=== PATIENT | female | born 1940 | race Caucasian/White ===

== ENCOUNTER → 2016-10-31 | Outpatient (CLI) | payer MEDICARE ==
[~2016-10-31] MED LIST: ACETAMINOPHEN-H1 TA2 PO; ALTOCOR40 MG PO; AMLODIPINE BESYL5 MG PO; AMLODIPINE5 MG PO; ASPIRIN CHEWABL81 M1 PO; ATENOLOL50 MG PO; CIPRO500 MG PO; FE-40325 MG PO; Heparin SC; K-DUR20 MEQ PO; LASIX40 MG PO; LISINOPRIL10 MG PO; METOPROLOL SUCC50 M2 PO; NEURONTIN300 MG PO; NITRO-BID21 T; PHOS LO667 MG PO; PRAVASTATIN SOD40 MG PO; ROCALTROL0.25 MCG PO; SENSIPAR30 MG PO; TEMAZEPAM15 M1 PO; ZYLOPRIM100 MG PO
[2016-10-31 10:02] LABS: BASO % 0.9 % (0.0-1.0); EOS # 0.2 10*3/uL (0.0-0.4); EOS % 5.2 % (1.0-4.0); HEMATOCRIT 32.6 % (37.0-47.0); LYMPH # 0.5 10*3/uL (1.3-4.4); LYMPH % 16.1 % (27.0-41.0); MEAN CELL VOLUME 91.3 fl (81.0-99.0); MEAN CORPUSCULAR HGB 30.8 pg (27.0-31.0); MEAN CORPUSCULAR HGB CONC 33.7 g/dl (33.0-37.0); MEAN PLATELET VOLUME 9.5 fl (9.6-12.3); MONO # 0.4 10*3/uL (0.1-1.0); MONO % 10.9 % (3.0-9.0); NEUT # 2.2 10*3/uL (2.3-7.9); NEUT % 66.6 % (47.0-73.0); PLATELET COUNT AUTOMATED 121 10*3/uL (130-400); RED BLOOD COUNT 3.57 10*6/uL (4.10-5.10); RED CELL DISTRI WIDTH 13.3 % (0-14.5); WHITE BLOOD COUNT 3.3 10*3/uL (4.8-10.8)
[2016-10-31 10:30] LABS: ALBUMIN 3.6 gm/dl (3.1-4.5)
[2016-10-31 10:33] LABS: BILIRUBIN, TOTAL 0.5 mg/dl (0.2-1.0); TOTAL PROTEIN 6.9 gm/dL (6.4-8.2)
== END ==
LOC: LAB 09:36
PROVIDERS: Nurse Practitioner Family
DX: I12.9 Hypertensive chronic kidney disease with stage 1 through stage 4 chronic kidney disease, or unspecified chronic kidney disease (principal); E78.2 Mixed hyperlipidemia; N18.5 Chronic kidney disease, stage 5; R73.01 Impaired fasting glucose

== ENCOUNTER 2016-11-05 13:09 | Inpatient (IN) | payer MEDICARE ==
[~2016-11-05] VITALS: Ht 162.5 cm; Wt 66.3 kg
--- NOTE | ~2016-11-05 | CON ---
[place], [place] REPORT OF CONSULTATION [id number] UNIT #: [id number] ROOM: 529 DOCTOR: KASANDRA MORALES MD BIRTHDATE: [birth year] DOS: 11/06/2016 HISTORY OF PRESENT ILLNESS: The patient is a very pleasant 76-year-old woman, who was referred from [facility]'s office. She had been having increasing shortness of breath for the last one week, which had been getting worse and subsequently she was admitted and noted to have possible pneumonia. On routine CBC examination, she was found to be leukopenic and anemic and consulted for further evaluation and management. PAST MEDICAL HISTORY: Significant for chronic kidney disease, on dialysis; requiring chronic dialysis 3 times a week. History of hyperlipidemia, hypertension. PAST SURGICAL HISTORY: Lumpectomy of both breasts, history of cholecystectomy, hysterectomy and tonsillectomy. SOCIAL HISTORY: No smoking, drinking or drug abuse. FAMILY HISTORY: Father had hypertension, multiple MIs, first one at age 60, also history of chronic kidney disease, also had CHF with which he . Mother, hypertension, at age 60 because of brain aneurysm. ALLERGIES: No known allergies. MEDICATIONS: Norvasc, aspirin, calcium acetate, furosemide, metoprolol, temazepam. REVIEW OF SYSTEMS: CONSTITUTIONAL: No chills. No fatigue. No fever. No loss of appetite. No night sweats. No weakness. No weight loss. HEENT: No trouble swallowing. No loss of smell. No loss of hearing. No double vision. No pain. No discharge. ENT AND RESPIRATORY: No wheeze. No sore throat. No change in voice. No hearing loss. No nose bleed. No cough. No trouble breathing through nose. No shortness of breath. No coughing up blood. No epistaxis. CARDIOVASCULAR: No chest pain. No dizziness. No irregular heartbeat. No leg edema. No pain in legs while walking. No palpitations. No shortness of breath. DERMATOLOGIC: No acne. No hives. No laceration. No mole. No rash. ENDOCRINE: No cold intolerance. No diabetes. No fatigue. No hot flashes. No polydipsia. No polyuria. No urinating frequently. No weight loss. HEMATOLOGIC AND LYMPH: No fatigue. No easy bruising. GASTROENTEROLOGIC: No change in bowel habits. No indigestion. No frequent bloating. No vomiting blood. No abdominal cramping. No nausea. No heartburn. No vomiting. No abdominal pain. No dysphagia. No diarrhea. No constipation. No blood in stool. FEMALE REPRODUCTIVE: No vaginal itching. No difficulty urinating. No heavy periods. No dyspareunia. No sexually active. No dysmenorrhea. No pelvic pain. No breast pain. No nipple discharge. No abnormal vaginal discharge. No hot flashes. [place], [place] REPORT OF CONSULTATION NAME: VIANCA MELO UNIT #: [id number] ROOM: 529 DOCTOR: KASANDRA MORALES MD BIRTHDATE: [birth year] MUSCULOSKELETAL: No back pain. No muscle pain or weakness. No neck pain. No tingling/numbness. No swelling/bruising. No osteoporosis treatment. OPHTHALMOLOGIC: No double vision. No diminished vision. No loss of vision. UROLOGIC: No dysuria. No frequent nighttime urination. No irregular periods. No pain with urination. No difficulty urinating. No blood in urine. No frequent urination. No urinary incontinence. NEUROLOGIC: No loss of sensation in specific body area. No vertigo. No burning pain in feet. No trouble with balance. No trouble with coordination. No loss of consciousness. No loss of feeling/power. No confusion. No headache. No tingling/numbness. PSYCHOLOGIC: No tinnitus. No headaches. No shortness of breath. No weight decrease. No nausea. No vomiting. No abdominal discomfort. No constipation. No diarrhea. No depression. No anxiety. PHYSICAL EXAMINATION: GENERAL: Pleasant woman, in no apparent distress. VITAL SIGNS: Stable. HEENT: Oral mucosa appears intact. The external ears are normal in appearance. Nares are patent without lesions, exudates, erythema, or inflammation. Tongue is symmetrical. Uvula is midline. NECK AND THYROID: Neck supple without palpable masses. Trachea is midline. No thyromegaly. No carotid bruit or JVD. BREASTS: Normal. Nipples unremarkable. No drainage. No lumps felt on either side. HEART: Normal S1, S2, without significant murmur, rub, or gallop. LUNGS: Clear to auscultation and percussion with good air entry bilaterally. The patient is breathing easily without the use of accessory muscles. Diaphragmatic excursions are intact. ABDOMEN: No costovertebral angle tenderness. Soft. No organomegaly or masses. Nontender. No hernias present. Liver and spleen are not palpable. LYMPHATIC: No adenopathy noted in the cervical, supraclavicular, axillary, or inguinal regions. NEUROLOGIC: Nonfocal. Oriented to person, place, and time. MENTAL STATUS: Appropriate for mood and affect. PERIPHERAL PULSES: No varicosities. Femoral and pedal pulses are palpable. EXTREMITIES: Without cyanosis, clubbing, or edema. No gross anomalies. LABORATORY DATA: White count of 1.3, hemoglobin of 9.4, hematocrit 28.4, platelet count of 97,000. ANC of 1100. Peripheral smear shows Rouleau formation. ASSESSMENT: 1. Pancytopenia of unknown etiology. 2. Neutropenia. 3. Thrombocytopenia. 4. Sepsis. 5. Chronic kidney disease, on dialysis. PLAN: We will review records. Her neutropenia has been there for quite some time, her ANC level 1100 and her neutropenia could be secondary to bone marrow [place], [place] REPORT OF CONSULTATION NAME: VIANCA MELO UNIT #: [id number] ROOM: 529 DOCTOR: KASANDRA MORALES MD BIRTHDATE: [birth year] etiology/sepsis. We will keep a close watch at this time. Continue broad spectrum antibiotics. We will also get anemia workup and workup for thrombocytopenia, and depending upon that, further intervention. I had a detailed discussion with the patient about it, seemed to understand it. Ample time was given to the patient to ask me questions. We will follow. Thanks for consulting and letting me participate in the care of this interesting patient. KASANDRA MORAELS MD CM:CONSTR:REPORT OF CONSULTATION 1451 11/07/16 [id number] interface
--- NOTE | ~2016-11-05 | PR ---
[place], [place] PROGRESS NOTE NAME: VIANCA MELO [facility] #: [id number] UNIT #: [id number] ROOM: 529 DOCTOR: KASANDRA MORALES MD BIRTHDATE: [birth year] DOS: 11/07/2016 SUBJECTIVE: The patient is doing much better. She is awake, alert and responsive. PHYSICAL EXAMINATION: GENERAL: She is a pleasant woman in no apparent distress. VITAL SIGNS: Blood pressure ____/78, respirations 20, pulse 88, temperature 97.6. HEENT: Normocephalic, atraumatic NECK AND THYROID: Supple. No JVD, thyromegaly, or lymphadenopathy. HEART: Normal S1, S2. Regular rate and rhythm. LUNGS: Clear to auscultation and percussion. ABDOMEN: Soft. Nontender, nondistended. Bowel sounds present. EXTREMITIES: Normal ROM. No clubbing. No edema. LABORATORY DATA: White count of 2.3, hemoglobin 8.3, hematocrit 24.6, platelet count 103,000, ANC of 1900. Peripheral smear does not show any abnormality. EGFR is 7. Workup is still pending. ASSESSMENT: 1. Pancytopenia of unknown etiology, probably bone marrow suppression versus bone marrow etiology. 2. Renal failure, on dialysis. 3. Improving absolute neutrophil count. PLAN: Workup for pancytopenia has been initiated, which is still pending. If no answer, then she may need a bone marrow biopsy. We will be following her as outpatient and follow her counts closely at that time; if the things do not improve, then further intervention. In the meantime, the patient was advised if any bleeding, bruising, fever, chills, to call us right away, otherwise close followup. Ample time was given for the patient to ask me questions. KASANDRA MORALES MD CM:TROY [id number] KASANDRA MORALES MD 11/08/16 0045 interface
[2016-11-05 13:22] VITALS: BP 92/67
[2016-11-05] MEDS ORDERED: NORVASC5 MG PO (14:09)
[2016-11-05 15:03] LABS: BASO % 0.4 % (0.0-1.0); EOS # 0.2 10*3/uL (0.0-0.4); EOS % 6.3 % (1.0-4.0); HEMATOCRIT 31.1 % (37.0-47.0); HEMOGLOBIN 10.4 g/dl (12.0-16.0); LYMPH # 0.4 10*3/uL (1.3-4.4); LYMPH % 18.5 % (27.0-41.0); MEAN CELL VOLUME 90.4 fl (81.0-99.0); MEAN CORPUSCULAR HGB 30.2 pg (27.0-31.0); MEAN CORPUSCULAR HGB CONC 33.4 g/dl (33.0-37.0); MEAN PLATELET VOLUME 10.1 fl (9.6-12.3); MONO # 0.2 10*3/uL (0.1-1.0); MONO % 8.4 % (3.0-9.0); NEUT # 1.6 10*3/uL (2.3-7.9); NEUT % 65.6 % (47.0-73.0); PLATELET COUNT AUTOMATED 103 10*3/uL (130-400); RED BLOOD COUNT 3.44 10*6/uL (4.10-5.10); RED CELL DISTRI WIDTH 13.2 % (0-14.5); WHITE BLOOD COUNT 2.4 10*3/uL (4.8-10.8)
[2016-11-05 15:14] LABS: PROTHROMBIN TIME 10.1 SECONDS (9.0-12.4)
[2016-11-05 15:21] LABS: ALBUMIN 3.6 gm/dl (3.1-4.5); MAGNESIUM 2.2 mg/dL (1.5-2.1); PHOSPHOROUS 3.6 mg/dL (2.5-4.9); POTASSIUM 3.5 mmol/L (3.5-5.1)
[2016-11-05 15:23] LABS: BILIRUBIN, TOTAL 0.3 mg/dl (0.2-1.0); TOTAL PROTEIN 7.3 gm/dL (6.4-8.2)
[2016-11-05 15:24] LABS: HEMOGLOBIN A1c 4.5 % (4.8-5.6)
[2016-11-05 15:32] LABS: FREE T4 1.17 ng/dl (0.76-1.46); THYROID STIM HORMONE (HS) 1.27 uIU/ml (0.358-4.75)
[2016-11-05 16:00] VITALS: BP 147/67; BP 197/62
[2016-11-05 16:14] LABS: FOLIC ACID 6.75 ng/mL (>5.38)
[2016-11-05 20:00] VITALS: BP 189/67
[2016-11-06] VITALS: BP 176/70
[2016-11-06 06:26] LABS: HEMATOCRIT 28.4 % (37.0-47.0); HEMOGLOBIN 9.4 g/dl (12.0-16.0); MEAN CELL VOLUME 91.3 fl (81.0-99.0); MEAN CORPUSCULAR HGB 30.2 pg (27.0-31.0); MEAN CORPUSCULAR HGB CONC 33.1 g/dl (33.0-37.0); MEAN PLATELET VOLUME 10.7 fl (9.6-12.3); PLATELET COUNT AUTOMATED 97 10*3/uL (130-400); RED BLOOD COUNT 3.11 10*6/uL (4.10-5.10); RED CELL DISTRI WIDTH 13.2 % (0-14.5)
[2016-11-06 06:41] LABS: CKMB 0.6 ng/ml (0.5-3.6); TROPONIN I 0.018 ng/ml (<0.045)
[2016-11-06 06:45] LABS: POTASSIUM 4.7 mmol/L (3.5-5.1)
[2016-11-06 06:49] LABS: LYMPHOCYTE # 0.2 10*3/uL (1.3-4.4); NEUTROPHIL # 1.1 10*3/uL (2.3-7.9); NEUTROPHILS 84 % (47-73); PLATELET SUFFICIENCY LOW (NORMAL); POLYCHROMASIA SLIGHT; ROULEAUX SLIGHT; TOTAL CELLS COUNTED 100 #CELLS
[2016-11-06 06:51] LABS: WHITE BLOOD COUNT 1.3 10*3/uL (4.8-10.8)
[2016-11-06 08:00] VITALS: BP 160/78
[2016-11-06 12:00] VITALS: BP 162/68
[2016-11-06 16:00] VITALS: BP 181/64
[2016-11-06 20:00] VITALS: BP 168/60
[2016-11-07] VITALS: BP 124/58
[2016-11-07 06:09] LABS: HEMATOCRIT 24.6 % (37.0-47.0); HEMOGLOBIN 8.3 g/dl (12.0-16.0); IG # 0.1 10*3/uL (0.0-0.1); LYMPH # 0.2 10*3/uL (1.3-4.4); LYMPH % 8.4 % (27.0-41.0); MEAN CELL VOLUME 89.8 fl (81.0-99.0); MEAN CORPUSCULAR HGB 30.3 pg (27.0-31.0); MEAN CORPUSCULAR HGB CONC 33.7 g/dl (33.0-37.0); MEAN PLATELET VOLUME 10.6 fl (9.6-12.3); MONO # 0.1 10*3/uL (0.1-1.0); MONO % 3.6 % (3.0-9.0); NEUT # 1.9 10*3/uL (2.3-7.9); NEUT % 85.3 % (47.0-73.0); PLATELET COUNT AUTOMATED 103 10*3/uL (130-400); RED BLOOD COUNT 2.74 10*6/uL (4.10-5.10); RED CELL DISTRI WIDTH 13.3 % (0-14.5); WHITE BLOOD COUNT 2.3 10*3/uL (4.8-10.8)
[2016-11-07 06:27] LABS: POTASSIUM 4.1 mmol/L (3.5-5.1)
[2016-11-07 08:00] VITALS: BP 162/72
[2016-11-07] MEDS ORDERED: AVPAK AZITHROM250 M1 PO (10:59)
[2016-11-07] MEDS ORDERED: DOXYCYCLINE MO100 M1 PO (10:59)
[2016-11-07] MEDS ORDERED: PREDNISONE50 MG PO (10:59)
[2016-11-07 12:17] LABS: IRON 203 ug/dL (50-170); IRON SATURATION 85 %; UIBC 35 ug/dL (110-365)
[2016-11-08 06:12] LABS: TOTAL PROTEIN, SERUM 5.8 g/dL (6.0-8.5)
[2016-11-08 15:10] LABS: A/G RATIO 1.2 (0.7-1.7); ALBUMIN 3.2 g/dL (2.9-4.4); ALPHA-1-GLOBULIN 0.3 g/dL (0.0-0.4); BETA GLOBULIN 0.8 g/dL (0.7-1.3); GAMMA GLOBULIN 0.9 g/dL (0.4-1.8); GLOBULIN, TOTAL 2.6 g/dL (2.2-3.9); M-SPIKE Not Observed g/dL (Not Observed); PE INTERPRETATION Comment: (.)
[2016-11-08 16:12] LABS: HLA CLASS 1 ANTIBODY Negative (Negative); IIb/IIIa ANTIBODY Negative (Negative); Ia/IIa ANTIBODY Positive (Negative)
== END 2016-11-07 12:20 | disposition home or self-care (01) | DRG 871 ==
LOC: 5E 13:09
PROVIDERS: Internal Medicine; Internal Medicine Hematology & Oncology
DX: A41.9 Sepsis, unspecified organism (principal); J15.6 Pneumonia due to other Gram-negative bacteria; D61.818 Other pancytopenia; N18.6 End stage renal disease; I12.0 Hypertensive chronic kidney disease with stage 5 chronic kidney disease or end stage renal disease; E78.5 Hyperlipidemia, unspecified; Z90.49 Acquired absence of other specified parts of digestive tract; Z90.710 Acquired absence of both cervix and uterus; Z82.49 Family history of ischemic heart disease and other diseases of the circulatory system; Z84.1 Family history of disorders of kidney and ureter; Z79.82 Long term (current) use of aspirin; Z79.899 Other long term (current) drug therapy; Z99.2 Dependence on renal dialysis

== ENCOUNTER → 2017-02-20 | Outpatient (CLI) | payer MEDICARE ==
[~2017-02-20] MED LIST changes: +AVPAK AZITHROM250 M1 PO; +DOXYCYCLINE MO100 M1 PO; +NORVASC5 MG PO; +PREDNISONE50 MG PO
[2017-02-20 09:20] LABS: BASO % 0.9 % (0.0-1.0); EOS # 0.3 10*3/uL (0.0-0.4); EOS % 7.3 % (1.0-4.0); HEMATOCRIT 34.1 % (37.0-47.0); HEMOGLOBIN 11.2 g/dl (12.0-16.0); LYMPH % 23.1 % (27.0-41.0); MEAN CELL VOLUME 93.4 fl (81.0-99.0); MEAN CORPUSCULAR HGB 30.7 pg (27.0-31.0); MEAN CORPUSCULAR HGB CONC 32.8 g/dl (33.0-37.0); MEAN PLATELET VOLUME 9.6 fl (9.6-12.3); MONO # 0.5 10*3/uL (0.1-1.0); MONO % 11.1 % (3.0-9.0); NEUT # 2.5 10*3/uL (2.3-7.9); NEUT % 57.4 % (47.0-73.0); PLATELET COUNT AUTOMATED 148 10*3/uL (130-400); RED BLOOD COUNT 3.65 10*6/uL (4.10-5.10); RED CELL DISTRI WIDTH 14.2 % (0-14.5); WHITE BLOOD COUNT 4.4 10*3/uL (4.8-10.8)
== END | disposition home or self-care (01) ==
LOC: LAB 09:06
PROVIDERS: Internal Medicine Hematology & Oncology
DX: D70.9 Neutropenia, unspecified (principal)

== ENCOUNTER → 2017-06-06 | Outpatient (CLI) | payer MEDICARE | END | disposition home or self-care (01) | LOC: RAD 11:46 | DX: I51.7 Cardiomegaly (principal) ==

== ENCOUNTER → 2017-06-18 | Outpatient (CLI) | payer MEDICARE ==
[~2017-06-18] MED LIST changes: +LISINOPRIL5 MG PO
--- NOTE | ~2017-06-18 | ST ---
[place], [place] EXERCISE STRESS TEST REPORT NAME: VIANCA MELO [facility] #: [id number] UNIT #: [id number] ROOM: DOCTOR: FUAD DOUGLAS MD BIRTHDATE: [birth year] DOS: 06/18/2017 REFERRING PHYSICIAN: Dr. Kristy Jensen. INDICATION: Central chest pain. The patient underwent standard protocol Lexiscan stress EKG. The patient's baseline EKG showed normal sinus rhythm with left ventricular hypertrophy. The patient's baseline heart rate 60 with a blood pressure of 122/70. The patient's peak heart rate was 74 with a blood pressure 110/48. The patient had no chest pain, no significant EKG changes, different from baseline and no arrhythmias were noted. SUMMARY OF FINDINGS: Unremarkable Lexiscan stress EKG. Please see separate report for perfusion scan results. FUAD DOUGLAS MD CM:STRESS:EXERCISE STRESS TEST REPORT [id number] FUAD DOUGLAS MD
--- NOTE | 2017-06-18 11:20 | NUR ---
INFORMED CONSENT SIGNED FOR LEXISCAN STRESS TEST WITH DR. DOUGLAS. RESTING EKG NSR, HR 6O, BP 122/70. PULSE OX 97% AND LUNGS CLEAR. COMPLETED ONE MINUTE OF LEXISCAN PROTOCOL RECEIVING LEXISCAN 0.4MG OVER 10 SECONDS. NO ARRHYTMIAS NOTED. NONDIAGNOSTIC ST CHANGES NOTED. PT C/O SOB AND ABDOMNAL CRAMPING. LAST RECOVERY HR 71, BP 122/56. WAITING NUCLEAR SCANNING IN STABLE CONDITION.
== END | disposition home or self-care (01) ==
LOC: CARD 01:34
DX: I25.10 Atherosclerotic heart disease of native coronary artery without angina pectoris (principal)

== ENCOUNTER → 2017-07-15 | Outpatient (CLI) | payer MEDICARE ==
--- NOTE | ~2017-07-15 | PF ---
[place], [place] PULMONARY FUNCTION TEST [id number] UNIT #: [id number] ROOM: DOCTOR: RAJINDER MENG MD,ADAN BIRTHDATE: [birth year] DOS: 07/15/2017 The test was ordered by therapist. HISTORY: A 77-year-old female patient who has a pulmonary function test done for the assessment of symptoms of nonproductive cough and shortness of breath. She was noted with height of 64 inches, weight of 140 pounds. There were no past tobacco use reported. SPIROMETRY: The FVC was recorded 2.19 liters, 81% predicted value normal. The FEV1 recorded 1.6 liters at 83% predicted value normal as well. No changes occurred postbronchodilator test. Flow volume was noted essentially mild obstructive airway pattern, otherwise normal test. The lung volume, thoracic gas volume recorded 77%, residual volume 74%, total lung capacity 71%. The lung volumes suggestive of mild restrictive airway pattern. The patient's lung diffusion without correction of carbon monoxide hemoglobin noted 34%. The patient's airway resistance and passive conductance noted normal; however, partial improvement occurs post-bronchodilator test. 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 Her remarkable findings noted significant reduction in lung diffusion, etiology unclear, to be correlated with the patient's clinical history and radiology data. ADAN CALVILLO MD CM:PFREPORT:PULMONARY FUNCTION TEST 1621 0104 ADAN MENG MD
== END | disposition home or self-care (01) ==
LOC: CP 12:36
DX: R06.02 Shortness of breath (principal)

== ENCOUNTER 2017-09-10 06:28 | Emergency (ER) | payer MEDICARE ==
[~2017-09-10] VITALS: Ht 162.5 cm; Wt 63.5 kg
== END 2017-09-10 08:40 | disposition home or self-care (01) ==
LOC: ED 06:28
DX: S30.0XXA Contusion of lower back and pelvis, initial encounter (principal); W10.9XXA Fall (on) (from) unspecified stairs and steps, initial encounter; Y93.89 Activity, other specified; Y92.89 Other specified places as the place of occurrence of the external cause; Y99.8 Other external cause status

== ENCOUNTER → 2018-01-06 | Outpatient (CLI) | payer MEDICARE ==
[2018-01-06 09:20] LABS: ALBUMIN 3.5 gm/dl (3.1-4.5); BASO # 0.1 10*3/uL (0.0-0.1); BASO % 0.8 % (0.0-1.0); CREATININE 11.6 mg/dL (0.55-1.02); EOS # 0.4 10*3/uL (0.0-0.4); EOS % 5.8 % (1.0-4.0); HEMATOCRIT 28.6 % (37.0-47.0); HEMOGLOBIN 9.1 g/dl (12.0-16.0); LYMPH # 0.8 10*3/uL (1.3-4.4); LYMPH % 11.5 % (27.0-41.0); MEAN CELL VOLUME 94.1 fl (81.0-99.0); MEAN CORPUSCULAR HGB 29.9 pg (27.0-31.0); MEAN CORPUSCULAR HGB CONC 31.8 g/dl (33.0-37.0); MEAN PLATELET VOLUME 10.1 fl (9.6-12.3); MONO # 0.6 10*3/uL (0.1-1.0); MONO % 9.5 % (3.0-9.0); NEUT # 4.7 10*3/uL (2.3-7.9); NEUT % 71.6 % (47.0-73.0); PLATELET COUNT AUTOMATED 160 10*3/uL (130-400); POTASSIUM 5.1 mmol/L (3.5-5.1); RED BLOOD COUNT 3.04 10*6/uL (4.10-5.10); RED CELL DISTRI WIDTH 13.2 % (0-14.5); TOTAL PROTEIN 7.5 gm/dL (6.4-8.2); WHITE BLOOD COUNT 6.5 10*3/uL (4.8-10.8)
== END | disposition home or self-care (01) ==
LOC: LAB 08:40
PROVIDERS: Nurse Practitioner Family
DX: I10 Essential (primary) hypertension (principal); R53.83 Other fatigue

== ENCOUNTER 2018-05-31 19:39 | Inpatient (IN) | payer MEDICARE ==
[~2018-05-31] VITALS: Ht 162.5 cm; Wt 68.7 kg
--- NOTE | ~2018-05-31 | EKG ---
[place], [place] ELECTROCARDIOGRAM REPORT NAME: VIANCA MELO UNIT #: [id number] ROOM: [facility] DOCTOR: CRISTY DRAFT REPORT BIRTHDATE: [birth year] [facility] Test Date: 2018-06-01 Test Time: 16:54:38 Pat Name: VIANCA MELO Department: Room: [place] [address] Gender: F Bods Developer: EKG.IN : 1940 Requested By: GENIE HALL Order Number: [id number] Reading MD: Amor Alan MD Measurements Intervals [place] Rate: 121 P: WA: QRS: 95 QRSD: 84 T: -87 QT: 330 QTc: 469 Interpretive Statements Atrial fibrillation Right axis deviation Nonspecific repol abnormality, diffuse leads Electronically Signed On 06-03-2018 11:09:30 PST by Amor Alan MD CM:EKGRPT:ELECTROCARDIOGRAM REPORT 1654 1109 GENIE MUNIZ DRAFT REPORT GENIE HALL MD
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
--- NOTE | ~2018-05-31 | EKG ---
[place], [place] ELECTROCARDIOGRAM REPORT NAME: VIANCA MELO UNIT #: [id number] ROOM: [facility] DOCTOR: CRISTY DRAFT REPORT BIRTHDATE: [birth year] [facility] Test Date: 2018-06-01 Test Time: 07:15:33 Pat Name: VIANCA MELO Department: Room: [place] [address] Gender: F Stacker Attendant: Jacquelyn Higgins : 1940 Requested By: JANIE HOLDER Order Number: [id number] Reading MD: Amor Alan MD Measurements Intervals [place] Rate: 80 P: 51 CO: 218 QRS: 88 QRSD: 89 T: 243 QT: 398 QTc: 460 Interpretive Statements Sinus rhythm Borderline prolonged CO interval Borderline right axis deviation Nonspecific repol abnormality, diffuse leads Electronically Signed On 06-03-2018 11:09:16 PST by Amor Alan MD CM:EKGRPT:ELECTROCARDIOGRAM REPORT 0715 1109 JANIE ZARATE DRAFT REPORT JANIE HOLDER DO
--- NOTE | ~2018-05-31 | EKG ---
[place], [place] ELECTROCARDIOGRAM REPORT NAME: VIANCA MELO UNIT #: [id number] ROOM: [facility] DOCTOR: CRISTY DRAFT REPORT BIRTHDATE: [birth year] [facility] Test Date: 2018-05-31 Test Time: 20:09:51 Pat Name: VIANCA MELO Department: Room: [facility] Gender: F Extrusion Former: Coreen Price : 1940 Requested By: CRAIG LYLES DNP Order Number: [id number] Reading MD: Amor Alan MD Measurements Intervals [place] Rate: 91 P: 0 [place]: 67 QRS: 87 QRSD: 87 T: 231 QT: 399 QTc: 492 Interpretive Statements Sinus rhythm Short [place] interval Borderline right axis deviation Abnormal R-wave progression, late transition Borderline repolarization abnormality Borderline ST elevation, lateral leads Borderline prolonged QT interval Electronically Signed On 06-03-2018 11:09:13 PST by Amor Alan MD CM:EKGRPT:ELECTROCARDIOGRAM REPORT 08 110 CRAIG LYLES DNP EPIPHANY DRAFT REPORT CRAIG LYLES DNP
[2018-05-31 19:46] VITALS: BP 157/55
[2018-05-31 20:33] VITALS: BP 131/53
[2018-05-31 21:00] LABS: BASO % 0.1 % (0.0-1.0); EOS % 0.1 % (1.0-4.0); HEMATOCRIT 33.6 % (37.0-47.0); HEMOGLOBIN 10.6 g/dl (12.0-16.0); LYMPH # 0.2 10*3/uL (1.3-4.4); LYMPH % 1.9 % (27.0-41.0); MEAN CELL VOLUME 93.3 fl (81.0-99.0); MEAN CORPUSCULAR HGB 29.4 pg (27.0-31.0); MEAN CORPUSCULAR HGB CONC 31.5 g/dl (33.0-37.0); MEAN PLATELET VOLUME 11.4 fl (9.6-12.3); MONO # 0.8 10*3/uL (0.1-1.0); MONO % 9.4 % (3.0-9.0); NEUT # 7.3 10*3/uL (2.3-7.9); NEUT % 87.8 % (47.0-73.0); PLATELET COUNT AUTOMATED 77 10*3/uL (130-400); RED CELL DISTRI WIDTH 14.7 % (0-14.5); WHITE BLOOD COUNT 8.3 10*3/uL (4.8-10.8)
[2018-05-31 21:05] LABS: ACT PARTIAL THROMBO TIME 27.4 SECONDS (20.8-31.5); INTERNATIONAL NORM RATIO 1.2 (2.0-3.5)
[2018-05-31 21:13] LABS: ALBUMIN 3.2 gm/dl (3.1-4.5); CREATININE 10.9 mg/dL (0.55-1.02); POTASSIUM 5.7 mmol/L (3.5-5.1); TOTAL PROTEIN 6.8 gm/dL (6.4-8.2)
[2018-05-31 21:20] LABS: TROPONIN I 1.08 ng/ml (<0.045)
[2018-05-31 21:31] LABS: BILIRUBIN NEGATIVE (NEGATIVE); BLOOD 1+ (NEGATIVE); CLARITY CLEAR (CLEAR); COLOR YELLOW (YELLOW); GLUCOSE TRACE (NEGATIVE); KETONE NEGATIVE (NEGATIVE); LEUKO ESTERASE NEGATIVE (NEGATIVE); NITRITE NEGATIVE (NEGATIVE); PH 8.5 (5.0-9.0); UROBILINOGEN 0.2 E.U./dl (0.2-1.0)
[2018-05-31 21:41] VITALS: BP 113/52
[2018-05-31 22:25] VITALS: BP 108/44
[2018-05-31 22:45] VITALS: BP 119/50
[2018-05-31] MEDS ORDERED: Imdur SA60 MG PO (23:12)
[2018-06-01] VITALS (19 sets, daily range): BP systolic 99–143; BP diastolic 37–76
[2018-06-01 00:47] LABS: PHOSPHOROUS 4.6 mg/dL (2.5-4.9)
[2018-06-01 00:52] LABS: TROPONIN I 1.33 ng/ml (<0.045)
[2018-06-01 09:27] LABS: BASO % 0.2 % (0.0-1.0); HEMATOCRIT 34.6 % (37.0-47.0); HEMOGLOBIN 10.8 g/dl (12.0-16.0); LYMPH # 0.2 10*3/uL (1.3-4.4); LYMPH % 3.6 % (27.0-41.0); MEAN CELL VOLUME 93.8 fl (81.0-99.0); MEAN CORPUSCULAR HGB 29.3 pg (27.0-31.0); MEAN CORPUSCULAR HGB CONC 31.2 g/dl (33.0-37.0); MEAN PLATELET VOLUME 12.1 fl (9.6-12.3); MONO # 0.6 10*3/uL (0.1-1.0); MONO % 9.7 % (3.0-9.0); NEUT # 5.1 10*3/uL (2.3-7.9); NEUT % 86.2 % (47.0-73.0); PLATELET COUNT AUTOMATED 61 10*3/uL (130-400); RED BLOOD COUNT 3.69 10*6/uL (4.10-5.10); RED CELL DISTRI WIDTH 14.9 % (0-14.5); WHITE BLOOD COUNT 5.9 10*3/uL (4.8-10.8)
[2018-06-01 10:52] LABS: ALBUMIN 2.9 gm/dl (3.1-4.5); CREATININE 11.2 mg/dL (0.55-1.02); PHOSPHOROUS 5.5 mg/dL (2.5-4.9)
[2018-06-01 10:58] LABS: THYROID STIM HORMONE (HS) 1.89 uIU/ml (0.358-4.75)
[2018-06-01 11:02] LABS: POTASSIUM 6.5 mmol/L (3.5-5.1)
[2018-06-01 12:02] LABS: VITAMIN D, 25-HYDROXY 11.7 ng/mL (30-100)
[2018-06-02] VITALS (17 sets, daily range): BP systolic 94–117; BP diastolic 41–60
[2018-06-02 06:01] LABS: BASO % 0.4 % (0.0-1.0); EOS % 0.4 % (1.0-4.0); HEMATOCRIT 28.8 % (37.0-47.0); HEMOGLOBIN 9.1 g/dl (12.0-16.0); LYMPH # 0.3 10*3/uL (1.3-4.4); MEAN CELL VOLUME 94.1 fl (81.0-99.0); MEAN CORPUSCULAR HGB 29.7 pg (27.0-31.0); MEAN CORPUSCULAR HGB CONC 31.6 g/dl (33.0-37.0); MEAN PLATELET VOLUME 12.5 fl (9.6-12.3); MONO # 0.5 10*3/uL (0.1-1.0); MONO % 11.6 % (3.0-9.0); NEUT # 3.7 10*3/uL (2.3-7.9); NEUT % 79.7 % (47.0-73.0); PLATELET COUNT AUTOMATED 66 10*3/uL (130-400); RED BLOOD COUNT 3.06 10*6/uL (4.10-5.10); RED CELL DISTRI WIDTH 14.8 % (0-14.5); WHITE BLOOD COUNT 4.6 10*3/uL (4.8-10.8)
[2018-06-02 06:22] LABS: ALBUMIN 2.5 gm/dl (3.1-4.5); CREATININE 6.44 mg/dL (0.55-1.02); PHOSPHOROUS 5.4 mg/dL (2.5-4.9); TOTAL PROTEIN 5.8 gm/dL (6.4-8.2)
[2018-06-03] VITALS: BP 106/54
[2018-06-03 04:00] VITALS: BP 115/46
[2018-06-03 05:35] LABS: ALBUMIN 2.4 gm/dl (3.1-4.5); CREATININE 7.87 mg/dL (0.55-1.02); PHOSPHOROUS 5.2 mg/dL (2.5-4.9); POTASSIUM 4.6 mmol/L (3.5-5.1)
[2018-06-03 05:53] LABS: BASO % 0.2 % (0.0-1.0); EOS # 0.1 10*3/uL (0.0-0.4); EOS % 1.9 % (1.0-4.0); HEMATOCRIT 28.5 % (37.0-47.0); LYMPH # 0.4 10*3/uL (1.3-4.4); LYMPH % 8.6 % (27.0-41.0); MEAN CELL VOLUME 94.1 fl (81.0-99.0); MEAN CORPUSCULAR HGB 29.7 pg (27.0-31.0); MEAN CORPUSCULAR HGB CONC 31.6 g/dl (33.0-37.0); MEAN PLATELET VOLUME 12.3 fl (9.6-12.3); MONO # 0.6 10*3/uL (0.1-1.0); MONO % 12.4 % (3.0-9.0); NEUT # 3.6 10*3/uL (2.3-7.9); NEUT % 75.6 % (47.0-73.0); PLATELET COUNT AUTOMATED 80 10*3/uL (130-400); RED BLOOD COUNT 3.03 10*6/uL (4.10-5.10); WHITE BLOOD COUNT 4.7 10*3/uL (4.8-10.8)
[2018-06-03 08:00] VITALS: BP 104/54
[2018-06-03 12:00] VITALS: BP 93/55
[2018-06-03 16:31] VITALS: BP 100/50
== END 2018-06-03 19:33 | disposition short-term general hospital (02) | DRG 871 ==
LOC: ED 19:39 → ICCU 21:44 → EDHOLD 21:44 → ICCU 21:59
PROVIDERS: Internal Medicine; Nurse Practitioner Family; Student in an Organized Health Care Education/Training Program
PROC: 5A1D70Z Performance of Urinary Filtration, Intermittent, Less than 6 Hours Per Day (ICD-10-PCS; principal; 2018-06-01)
PROC: B548ZZA Ultrasonography of Superior Vena Cava, Guidance (ICD-10-PCS; principal; 2018-06-01)
PROC: 02HV33Z Insertion of Infusion Device into Superior Vena Cava, Percutaneous Approach (ICD-10-PCS; principal; 2018-06-01)
PROC: 5A1D70Z Performance of Urinary Filtration, Intermittent, Less than 6 Hours Per Day (ICD-10-PCS; 2018-06-03)
DX: A41.01 Sepsis due to Methicillin susceptible Staphylococcus aureus (principal); G93.41 Metabolic encephalopathy; J96.01 Acute respiratory failure with hypoxia; J18.9 Pneumonia, unspecified organism; N18.6 End stage renal disease; I21.4 Non-ST elevation (NSTEMI) myocardial infarction; E87.1 Hypo-osmolality and hyponatremia; I50.32 Chronic diastolic (congestive) heart failure; D61.818 Other pancytopenia; I13.2 Hypertensive heart and chronic kidney disease with heart failure and with stage 5 chronic kidney disease, or end stage renal disease; R65.20 Severe sepsis without septic shock; R31.21 Asymptomatic microscopic hematuria; R81 Glycosuria; E87.5 Hyperkalemia; R73.9 Hyperglycemia, unspecified; I87.8 Other specified disorders of veins; L29.9 Pruritus, unspecified; M62.08 Separation of muscle (nontraumatic), other site; I25.10 Atherosclerotic heart disease of native coronary artery without angina pectoris; E78.5 Hyperlipidemia, unspecified; E66.3 Overweight; B86 Scabies; I48.91 Unspecified atrial fibrillation; T14.8XXA Other injury of unspecified body region, initial encounter; F41.9 Anxiety disorder, unspecified; I08.1 Rheumatic disorders of both mitral and tricuspid valves; I27.20 Pulmonary hypertension, unspecified; K57.90 Diverticulosis of intestine, part unspecified, without perforation or abscess without bleeding; E83.39 Other disorders of phosphorus metabolism; W18.39XA Other fall on same level, initial encounter; Y93.89 Activity, other specified; Z99.2 Dependence on renal dialysis; Y92.89 Other specified places as the place of occurrence of the external cause; Y99.8 Other external cause status; Z68.26 Body mass index [BMI] 26.0-26.9, adult; Z90.49 Acquired absence of other specified parts of digestive tract; Z90.710 Acquired absence of both cervix and uterus; Z84.1 Family history of disorders of kidney and ureter; Z82.49 Family history of ischemic heart disease and other diseases of the circulatory system; Z82.3 Family history of stroke; Z87.01 Personal history of pneumonia (recurrent); Z79.899 Other long term (current) drug therapy; D63.1 Anemia in chronic kidney disease; Z95.5 Presence of coronary angioplasty implant and graft; E80.6 Other disorders of bilirubin metabolism

== ENCOUNTER → 2018-07-11 | Day surgery (SDC) | payer MEDICARE ==
[~2018-07-11] VITALS: Ht 162.5 cm; Wt 66.2 kg
[2018-07-11] VITALS (8 sets, daily range): BP systolic 99–148; BP diastolic 44–78
[~2018-07-11] MED LIST changes: +ATORVASTATIN CA40 M1 PO; +AURYXIA210 MG PO; +CLOPIDOGREL75 MG PO; +COLACE100 MG PO; +ELIQUIS5 M1 PO; +Imdur SA60 MG PO; +METOPROLOL SUCC50 M1 PO; +NATURE'S BLEND F1 MG PO; +NORCO 5-325 TA1 EACH PO; +PROTONIX40 MG PO; +ROCALTROL0.25 MC2 PO; +SIMVASTATIN20 MG PO; +VITAMIN D32000 UNI1 PO
--- NOTE | ~2018-07-11 | PROC NOTE ---
[place], [place] PROCEDURE NOTE NAME: KAMERONVIANCA Blakely UNIT #: [id number] ROOM: DOCTOR: BILL KEATING MD BIRTHDATE: [birth year] DOS: 07/11/2018 PREOPERATIVE DIAGNOSIS: Anemia. POSTOPERATIVE DIAGNOSES: Sigmoid diverticulosis, internal hemorrhoids. PROCEDURE: Colonoscopy. ENDOSCOPIST: Bill Keating M.D. SURGICAL LEAD: ANA. ANESTHESIA: MAC. INDICATIONS: This is a 78-year-old lady here for a colonoscopy for a workup for anemia. The procedure and its complications were explained to the patient in detail preoperatively. Complications that were discussed included but were not limited to bleeding, missed lesions, colon perforation, and she agreed to proceed. DESCRIPTION OF PROCEDURE: After identifying the patient, the patient was brought to the endoscopy suite and placed in the left lateral position. After time-out procedure was called, IV sedation was administered by the anesthesia team. A digital rectal exam was performed, which was within normal limits. An adult colonoscope was now introduced into the anal canal and advanced sequentially into the rectum, sigmoid colon, descending colon, transverse colon, and ascending colon up to the cecum. The prep was found to be suboptimal in certain areas of the colon, mainly in the ascending colon, and saline was used for irrigation and to suck away the fluid in order to better visualize the cecum and the ascending colon. Upon reaching the cecum, the scope was withdrawn. Total withdrawal time was 7 minutes and 30 seconds. There were no obvious bleeding areas or lesions that could be seen in the entirety of the colon. Mild sigmoid diverticulosis was encountered as well as internal hemorrhoids that were uncomplicated and nonbleeding were encountered as well. The scope was withdrawn. The patient was brought back to the recovery room in stable fashion. There were no complications. Dr. Bill Keating, the attending surgeon, was present throughout the operating case. Based on these findings, the patient is recommended to only have a colonoscopy if she continues to have symptoms suggestive of lower GI bleed or any other colon related symptoms. These findings were discussed with the patient's family in the recovery room. [place], [place] PROCEDURE NOTE NAME: VIANCA MEOL UNIT #: [id number] ROOM: DOCTOR: BILL KEATING MDTE: [birth year] Bill Keating MD CM:GRACIE:PROCEDURE NOTE [id number] BILL KEATING MD
== END | disposition home or self-care (01) ==
LOC: SDC 07-07 12:30
DX: K57.30 Diverticulosis of large intestine without perforation or abscess without bleeding (principal); K64.8 Other hemorrhoids; I13.2 Hypertensive heart and chronic kidney disease with heart failure and with stage 5 chronic kidney disease, or end stage renal disease; I25.10 Atherosclerotic heart disease of native coronary artery without angina pectoris; I50.9 Heart failure, unspecified; N18.6 End stage renal disease; I25.2 Old myocardial infarction; E78.00 Pure hypercholesterolemia, unspecified; I48.91 Unspecified atrial fibrillation; Z99.2 Dependence on renal dialysis; Z90.49 Acquired absence of other specified parts of digestive tract; Z90.710 Acquired absence of both cervix and uterus; Z98.890 Other specified postprocedural states; Z79.899 Other long term (current) drug therapy; Z82.3 Family history of stroke; Z84.1 Family history of disorders of kidney and ureter; Z79.01 Long term (current) use of anticoagulants; Z95.5 Presence of coronary angioplasty implant and graft

== ENCOUNTER 2018-07-25 09:20 | Inpatient (IN) | payer MEDICARE ==
[~2018-07-25] VITALS: Ht 162.6 cm; Wt 63.0 kg
--- NOTE | ~2018-07-25 | PR ---
[place], [place] PROGRESS NOTE [id number] UNIT #: [id number] ROOM: 529 DOCTOR: ADAN PLASCENCIA MD BIRTHDATE: [birth year] DOS: 07/28/2018 PULMONARY PROGRESS NOTE SUBJECTIVE: She has been noted with symptoms of shortness of breath. Denies symptoms of chest pain, fever or chills. Denies symptoms of hemoptysis. The patient's CT of the chest completed this morning. Denies symptoms of abdominal pain, nausea, vomiting, or diarrhea. She was receiving hemodialysis after the current CT of the chest that was completed. Remaining systems reviewed were noted negative. PHYSICAL EXAMINATION: VITAL SIGNS: Normal temperature, respiratory rate 18, heart rate 71, blood pressure 108/68-135/62. The pulse oxygen saturation on 2 liters nasal cannula 97% saturation. HEENT: Examination shows no acute change. NECK: Supple. CARDIOVASCULAR: S1, S2 audible. LUNGS: Decreased breath sounds noted in the left lung. ABDOMEN: Soft, nontender, bowel sounds present. EXTREMITIES: No acute edema. VISIBLE SKIN: No lesions or rashes. MUSCULOSKELETAL: Without any acute deformities. CENTRAL NERVOUS SYSTEM: Intact. LABORATORY DATA: BMP today: BUN 43, creatinine 7.82. Potassium 5.4, mildly elevated. The CT of the chest that was completed this morning personally reviewed shows moderate size loculated pleural fluid was noted. Loculation in the left upper lung area and the left lower lobe as well. Area of compression atelectasis was also noted. There was no evidence of pulmonary embolism. IMPRESSION: 1. The patient who has been currently noted with a loculated moderate to large left pleural fluid at this time. 2. End-stage renal disease on hemodialysis. 3. 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 ____ pleural fluid would be considered possibly result of infection with ongoing infection resulting in current loculated pleural fluid remains in consideration. There were no new pulmonary embolism. 4. Mild hyperkalemia related to end-stage renal failure. PLAN OF MANAGEMENT: Proceed with hemodialysis. The patient will be assessed tomorrow morning for sampling of the current pleural fluid. Depends on the pleural fluid assessment. Further recommendation will be made. The patient may require VATS procedure for the drainage of the current loculated large pleural fluid as well. Monitor respiratory status otherwise closely. Usual care. Supportive therapy plan and management, treatment and care, plan of management. [place], [place] PROGRESS NOTE NAME: VIANCA MELO UNIT #: [id number] ROOM: 529 DOCTOR: RAJINDER MENG MD,ADAN BIRTHDATE: [birth year] ADAN CALVILLO MD CM:PNTRANS [id number] ADAN MENG MD 07/28/18 2328 interface
--- NOTE | ~2018-07-25 | PR ---
[place], [place] PROGRESS NOTE NAME: VIANCA MELO UNIT #: [id number] ROOM: 529 DOCTOR: JOSE ALFREDO HENDERSON MD BIRTHDATE: [birth year] DOS: 07/29/2018 CARDIOLOGY PROGRESS NOTE SUBJECTIVE: The patient was seen in the dialysis unit today while she was on dialysis, on 07/29/2018. This morning, she did have a thoracentesis and a chest tube was left behind. The pleurovac shows that 900 mL of blood-tinged fluid have been drained thus far. Laboratory studies are yet pending. The patient does have considerable rib and back pain from the procedure and she states that it does hurt to breathe now. PHYSICAL EXAMINATION: VITAL SIGNS: Her pulse is 69 and irregularly irregular. Blood pressure is 144/69. She is afebrile. NECK: Supple. She has no jugular distention. Carotids are full. LUNGS: Respirations are unlabored. She does have decreased breath sounds at the left base. Her right lung is clear. HEART: Has an irregularly irregular rhythm with distant tones. EXTREMITIES: Showed no edema. LABORATORY DATA: Sodium today is 138 with a potassium of 4.7, chloride of 100, CO2 of 27, BUN of 59 and creatinine of 9.39. IMPRESSION: 1. Acute respiratory distress with hypoxemia, improved. 2. Large left pleural effusion, status post thoracentesis. Thus far, approximately 1 liter of blood-tinged fluid has been drained. 3. End-stage renal disease. 4. Atrial fibrillation with controlled ventricular response. 5. Essential hypertension. 6. History of stroke prophylaxis utilizing apixaban. PLAN: At this point, we are not completely sure as to the cause of her left pleural effusion; however, it does appear to be blood-tinged. I think that for the present time we will continue to withhold anticoagulant therapies. Some authors do recommend that anticoagulants not be given in dialysis patients in any case. We will continue to follow her with her other physicians. I thank the hospitalist physicians for asking our advice regarding her care. [place], [place] PROGRESS NOTE NAME: VIANCA MELO UNIT #: [id number] ROOM: 529 DOCTOR: JOSE ALFREDO HENDERSON MD BIRTHDATE: [birth year] JOSE ALFREDO HENDERSON MD CM:PNTRANS 11 JOSE ALFREDO HENDERSON MD 07/29/18 1313 interface
--- NOTE | ~2018-07-25 | PR ---
[place], [place] PROGRESS NOTE NAME: VIANCA MELO UNIT #: [id number] ROOM: 529 DOCTOR: JOSE ALFREDO HENDERSON MD BIRTHDATE: [birth year] DOS: 07/27/2018 CARDIOLOGY PROGRESS NOTE SUBJECTIVE: The patient was seen at her bedside today, 07/27/2018, with her in attendance. She was sleeping and lying flat when I entered the room. She denies chest discomfort or shortness of breath as long as she is wearing oxygen. She states that if she goes to the bathroom without the oxygen, she does get very lightheaded. PHYSICAL EXAMINATION: VITAL SIGNS: Today, her pulse is 73 and irregularly irregular. Blood pressure is 110/54. She is afebrile. NECK: Supple. She has no jugular distention or hepatojugular reflux. Carotids are full. LUNGS: Respirations are unlabored at rest. She has decreased breath sounds at the left base. Her right lung is clear. She has no presacral edema. HEART: Has an irregularly irregular rhythm without murmurs or gallops. ABDOMEN: Soft and normally active. EXTREMITIES: Showed trace edema at the ankles. IMPRESSION: 1. Acute respiratory distress with hypoxemia, improved. 2. Large left pleural effusion. 3. End-stage renal disease. 4. Paroxysmal atrial fibrillation. The patient is currently in atrial fibrillation with a controlled ventricular response. 5. Essential hypertension. 6. Eliquis for stroke prophylaxis. PLAN: She will continue dialysis as per her betting clerks. A CT scan and decision regarding thoracentesis is pending. We will continue to observe her, but no other cardiac workup is planned at this time. I thank the hospitalist physicians for asking our advice regarding her care. [place], [place] PROGRESS NOTE NAME: CANDIE MELOLEY Zora UNIT #: [id number] ROOM: 529 DOCTOR: JOSE ALFREDO HENDERSON MD BIRTHDATE: [birth year] JOSE ALFREDO HENDERSON MD CM:PNTRANS [id number] JOSE ALFREDO HENDERSON MD 07/28/18 0055 interface
--- NOTE | ~2018-07-25 | PR ---
[place], [place] PROGRESS NOTE NAME: VIANCA MELO UNIT #: [id number] ROOM: 529 DOCTOR: ADAN PLASCENCIA MD BIRTHDATE: [birth year] DOS: 07/31/2018 PULMONARY PROGRESS NOTE SUBJECTIVE: The patient has been receiving hemodialysis today. The chest tube remains in place and about 150 mL of pleural fluid drainage noted in the last 24 hours. Denies symptoms of fever or chills. Chest pain has been controlled with current pain medications. Denies any coughing or hemoptysis. OBJECTIVE: VITAL SIGNS: Which have been recorded show normal temperature, respiratory rate 16, heart rate 72, blood pressure 128/81. The pulse oxygen saturation on 2 liters nasal cannula is 100% saturation. HEENT: Examination shows head is atraumatic. Eyes nonicterus. NECK: Supple. CARDIOVASCULAR: S1 and S2 audible. LUNGS: Good air entry of the lungs bilaterally. There is no wheezing or crackles. ABDOMEN: Soft, nontender. Bowel sounds present. EXTREMITIES: No new changes at the present time. LABORATORY DATA: BMP that was done this morning is reviewed and it shows BUN of 49, creatinine 8.35. CBC this morning: WBC count 2.8, hemoglobin 10.7, platelet count normal. The patient ____ pleural fluid, pending cytology. Culture preliminarily shows no bacterial growth. Chest x-ray from this morning is reviewed. Marked improvement in aeration on current chest x-ray is noted on the left side with resolution of pleural fluid. Chest tube remains in place. IMPRESSION: 1. The patient with pleural fluid, which has been currently noted stable. 2. End-stage renal failure, on hemodialysis. 3. Mild leukopenia, etiology unclear. PLAN OF THERAPY: Keep the chest tube in place for the next 24 hours. Reassess the patient's chest x-ray tomorrow morning and then possible removal of the chest tube consideration. [place], [place] PROGRESS NOTE NAME: VIANCA MELO UNIT #: [id number] ROOM: 529 DOCTOR: ADAN PLASCENCIA MD BIRTHDATE: [birth year] ADAN CALVILLO MD CM:PNTRANS 0930 ADAN MENG MD 07/31/18 1119 interface
--- NOTE | ~2018-07-25 | EKG ---
[place], [place] ELECTROCARDIOGRAM REPORT NAME: VIANCA MELO UNIT #: [id number] ROOM: 529 DOCTOR: EPIPHANY DRAFT REPORT BIRTHDATE: [birth year] [facility] Test Date: 2018-07-25 Test Time: 09:42:01 Pat Name: VIANCA MELO Department: Room: 529 Gender: F Information Systems Consultant: Jacquelyn Higgins : 1940 Requested By: ESTEBAN BENNETT Order Number: [id number] Reading MD: Josy Maldonado MD Measurements Intervals [place] Rate: 103 P: [place]: QRS: 90 QRSD: 89 T: 251 QT: 364 QTc: 477 Interpretive Statements Atrial fibrillation Borderline right axis deviation Nonspecific repol abnormality, diffuse leads Compared to ECG 06/01/2018 16:54:38 No significant changes Electronically Signed On 07-25-2018 16:01:57 PST by Josy Maldonado MD CM:EKGRPT:ELECTROCARDIOGRAM REPORT 0942 1601 ESTEBAN BENNETT EPIPHANY DRAFT REPORT ESTEBAN BENNETT
--- NOTE | ~2018-07-25 | PR ---
[place], [place] PROGRESS NOTE NAME: VIANCA MELO [facility] #: [id number] UNIT #: [id number] ROOM: 529 DOCTOR: RAJINDER MENG MDADAN BIRTHDATE: [birth year] DOS: 07/27/2018 PULMONARY PROGRESS NOTE SUBJECTIVE: The patient has been noted comfortable at this time, awake this morning. She had not been reported with any symptoms of chest pain, coughing or sputum expectoration or any abdominal pain. She has been complaining of mild cough without any sputum expectoration. Denies symptoms of hemoptysis or any chest pain. She has been ordered CTA of the chest that was pending to be done. The patient would require dialysis after the CTA of the chest because of end-stage renal failure. The patient denies symptoms of nausea, vomiting, headache or diplopia. Remaining systems were reviewed. They were noted all negative. PHYSICAL EXAMINATION: VITAL SIGNS: Normal temperature, respiratory rate 18, heart rate 73, blood pressure 110/54. Pulse oxygen saturation 2 liters nasal cannula 97% saturation. HEENT: No acute change. NECK: Supple. CARDIOVASCULAR: S1, S2 audible. LUNGS: The patient was noted without any crackles, rhonchi, or wheezing. Decreased breath sounds in the left lower lung. ABDOMEN: Flat, soft, nontender. EXTREMITIES: Without any acute edema. Left upper extremity wrapped after surgery with the Alex bandage. CENTRAL NERVOUS SYSTEM: Cranial nerves 2-12 intact. MUSCULOSKELETAL: Without acute deformities. LABORATORY DATA: CBC today; white count 2.9, hemoglobin 10, platelet count of 169,000. BMP this morning; BUN 28, creatinine 6.34. Phosphorus 5.7. Magnesium was normal. Blood culture on 18 of this month showed no bacterial growth. IMPRESSION: 1. Shortness of breath with left pleural fluid, etiology is undetermined at the present time. Differentials as described in the consultation remains in place. 2. Leukopenia-medication induced, other etiologies for the patient remains stable as well. 3. End-stage renal failure, on hemodialysis. PLAN OF TREATMENT: Proceed with the CT of the chest tomorrow morning. Assessment of pleural fluid, possible consideration of thoracentesis afterwards as necessary. Other therapy, plan of management, care plan with treatment and management. [place], [place] PROGRESS NOTE NAME: VIANCA MELO UNIT #: [id number] ROOM: 529 DOCTOR: RAJINDER MENG MD,ADAN BIRTHDATE: [birth year] ADAN CALVILLO MD CM:PNTRANS [phone] ADAN MENG MD 07/28/18 0252 interface
--- NOTE | ~2018-07-25 | PR ---
[place], [place] PROGRESS NOTE NAME: VIANCA MELO [facility] #: [id number] UNIT #: [id number] ROOM: 529 DOCTOR: ADAN PLASCENCIA MD BIRTHDATE: [birth year] DOS: 07/30/2018 SUBJECTIVE: Chest tube inserted yesterday with a large partially loculated left pleural fluid. She has been complaining of pain from the site of the chest tube, which has been treated with oral pain medications. Denies symptoms of fever or chills. The patient received the hemodialysis yesterday. She has not been noted any symptoms of nausea, vomiting. Denies symptoms of shortness of breath. Does not have any symptoms of cough, which has been significant. Denies symptoms of hemoptysis and symptoms of headache, nausea, vomiting, diarrhea, abdominal pain, hematemesis, melena, or hematochezia. Remaining systems were reviewed that was noted all negative. OBJECTIVE: VITAL SIGNS: Which were recorded showed the temperature noted as normal, respiratory rate of 18-20, heart rate 76, blood pressure 150/78 to 138/78. The pulse oxygen saturation on room air is 99% saturation. HEENT: No acute change. NECK: Supple. CARDIOVASCULAR: S1, S2 audible. LUNGS: Improvement in air entry noted in lower portion of the left lung. There were no wheezing or crackles. ABDOMEN: Flat, soft, nontender. Bowel sounds present. EXTREMITIES: The patient has no new changes. VISIBLE SKIN: No lesions or rashes. MUSCULOSKELETAL: Noted without any acute deformities. LABORATORY DATA: Chest x-ray that was done this morning was noted without pneumothorax, significant improvement in aeration of the left lung was noted just remained in the left lower hemithorax. The dialysis catheter remains in place in the right hemithorax to the internal jugular vein approach. There was no visible pulmonary infiltration was noted. The analysis of pleural fluid from yesterday, pH of the fluid noted 7.41. The cell differential for the patient 418 WBCs, 2000 RBCs, 49% lymphocytes, 46% macrophages. Chemistry of the pleural fluid glucose 101, albumin of 1.6, cholesterol less than 50, LDH of 88. Total protein of 3.2. Based on the albumin criteria, exudative pleural fluid would be considered, but the remaining parameters were noted consistent with a transudative effusion. The renal function panel that was done this morning, BUN 38, creatinine 6.64. The culture of the fluid was noted as no bacterial growth. The Gram stain many white blood cells without any organisms. IMPRESSION: 1. The patient was noted with lispro with about 1000 mL of pleural fluid drainage was noted approximately appeared to be mildly hemorrhagic with possible consideration on exudative pleural fluid. Culture so far showed no bacterial growth. The cytology remains pending. The etiology still remains undetermined as a cause of the pleural fluid; however, significant improvement in the aeration noted including drainage of all of the loculated pleural fluid with the chest x-ray. 2. Renal failure, on hemodialysis. [place], [place] PROGRESS NOTE NAME: VIANCA MELO UNIT #: [id number] ROOM: 529 DOCTOR: ADNA PLASCENCIA MD BIRTHDATE: [birth year] PLAN OF MANAGEMENT: Continue chest tube for drainage at this time. Continue scheduled pain management. Follow the results of cytology. Once the patient's pleural fluid drainage decrease significantly most likely in the next 24-48 hours, chest tube will be removed. At this time, the fluid is not suggestive of acute infectious etiology. Other etiology of connective tissue disorder would be considered and the workup ____ inpatient for patient's connective tissue disorder would be sent to the lab. The acid-fast will be also added to the pleural fluid as well. The past, family, social, surgical history of the patient remains unchanged. ADAN CALVILLO MD CM:PNTRANS 7 ADAN MENG MD 07/30/1846 interface
--- NOTE | ~2018-07-25 | CON ---
[place], [place] REPORT OF CONSULTATION NAME: VIANCA MELO [facility] #: [id number] UNIT #: [id number] ROOM: 529 DOCTOR: ADAN PLASCENCIA MD BIRTHDATE: [birth year] DOS: 07/26/2018 REASON FOR CONSULTATION: To assess the patient for the left pleural effusion. HISTORY OF PRESENT ILLNESS: This is a 78-year-old white female, longstanding hemodialysis patient. The patient is receiving hemodialysis 3 times a week. She was brought to the hospital. The patient was noted with symptoms of increased shortness of breath according to the patient on the day of admission. Shortness of breath occurring at rest. The patient denies symptoms of chest pain. She has mild cough without any sputum expectoration. Denies symptoms of chest pain or hemoptysis. 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 The patient has been currently noted comfortable at this time without any acute symptoms of respiratory distress. She has hemodialysis given yesterday. Denies symptoms of hemoptysis. The patient stays at ____ for the medical management of respiratory failure, hypoxia. REVIEW OF SYSTEMS: CONSTITUTIONAL: Fatigue and tiredness reported. Denies symptoms of fever or chills. EYES: Denies burning, redness, or tenderness. EARS, NOSE, THROAT SYMPTOMS: Denies sore throat, hoarseness, otalgia, postnasal drainage, or epistaxis. CARDIOVASCULAR: Denies anginal pain, edema or pain of the lower extremities. GASTROINTESTINAL: No dysphagia, nausea, vomiting, diarrhea, abdominal pain, hematemesis, melena, or hematochezia. SKIN: Denies abnormal lesions or rashes. MUSCULOSKELETAL: No acute joint pain, redness, or tenderness. CENTRAL NERVOUS SYSTEM: No dizziness, headache, diplopia, syncopal episodes. Remaining systems were reviewed. They were noted all negative. PAST MEDICAL HISTORY: The patient was known with history of: 1. Essential hypertension. 2. End-stage renal failure, hemodialysis for 7 years. 3. Hiatal hernia. 4. Coronary artery disease. PAST SURGICAL HISTORY: Noted as: 1. Lumpectomy of both breasts: 2. Cholecystectomy. 3. Hysterectomy. 5. Tonsillectomy. SOCIAL HISTORY: She is , has 4 children, lives at home. Denies any alcohol or illicit drug use. Denies tobacco use previously. FAMILY HISTORY: The patient's father at age of 6060 years old, complication of congestive heart failure. Mother at the age of 60+ years, complication of aneurysm of the brain. [place], [place] REPORT OF CONSULTATION NAME: VIANCA MELO UNIT #: [id number] ROOM: 529 DOCTOR: ADAN PLASCENCIA MD BIRTHDATE: [birth year] HOME MEDICATIONS: Listed as amlodipine, Imdur, lisinopril, metoprolol succinate, and simvastatin. ALLERGIES: Noted with no known drug allergies. PHYSICAL EXAMINATION: GENERAL: A 78-year-old female who has been currently noted awake and alert this morning of assessment. VITAL SIGNS: Height of 5 feet 4 inches, weight of 147 pounds, BMI 25. Recorded as a normal temperature, respiratory rate of 18-20, heart rate 68-67, blood pressure 156/97-120/78. Pulse oxygen saturation on room air at rest was 98% on 2 liters nasal cannula was 99% saturation. HEENT: Head was atraumatic. Eyes nonicterus. NECK: Supple. CARDIOVASCULAR: S1, S2 is audible. LUNGS: The patient noted decreased breath sounds on the left chest auscultation. There were no crackles. ABDOMEN: Soft, nontender, and flat. EXTREMITIES: The patient was noted without edema, clubbing, cyanosis of lower extremity. VISIBLE SKIN: No lesions or rashes. MUSCULOSKELETAL: Without acute deformities. CENTRAL NERVOUS SYSTEM: Cranial nerves 2-12 intact. LABORATORY DATA: Influenza A and B, nasal washing yesterday were noted negative. The PT, PTT yesterday were noted normal. CBC of 07/25/2018, WBC count 3.6, hemoglobin 9.6, and platelet count was normal. The lactic acid 1.2 yesterday. CMP that was done yesterday on admission, BUN 22, creatinine 5.45. Remaining electrolytes were normal. CBC of this morning, WBC of 2.6, hemoglobin 10.2, hematocrit 34.1, and platelet count were normal. CMP of this morning, BUN 31, creatinine 6.61, glucose 89, phosphorus 5.7. The 1 view chest x-ray that was done was noted with findings of a [id number] pleural fluid at the present time. The dialysis catheter noted in place, through the right internal jugular venous approach. IMPRESSION: 1. The patient admitted with symptoms of shortness breath, currently noted with left-sided pleural fluid, etiology is unclear. The differential could include for the possibility of acute pneumonia, malignant process, atypical finding with congestive heart failure, fluid overload or others. 2. End-Stage renal failure, on hemodialysis. 3. 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 There was no intervention done for the patient as far as known on the left side, has a dialysis catheter in the right internal jugular vein approach. PLAN OF MANAGEMENT: CT scan of the chest will be ordered at this time with contrast, CTA protocol for the patient to assess the pleural fluid formation etiology that would also exclude any pulmonary embolism as well causing the shortness of breath. Bronchodilator to be continued. At this time, there was [place], [place] REPORT OF CONSULTATION NAME: TIMMIREYAHonorioCANDIEVIANCA M UNIT #: [id number] ROOM: 529 DOCTOR: RAJINDER MENG MD,ADAN BIRTHDATE: [birth year] no clinical suspicion for acute pneumonia. Antibiotic use may not be needed. Follow the respiratory status closely. Other additional treatment changes and management will be ordered based on the progression of the illness. The patient might require hemodialysis after the pleural fluid assessment, the patient completed the CT scan of the chest. The patient would be considered for possible thoracentesis after that for further investigation of the pleural fluid. Other supportive plan of management, care plan patient to continue. ADAN CALVILLO MD CM:CONSTR:REPORT OF CONSULTATION 0731 07/26/18 1333 interface
--- NOTE | ~2018-07-25 | PR ---
[place], [place] PROGRESS NOTE NAME: VIANCA MELO [facility] #: [id number] UNIT #: [id number] ROOM: 529 DOCTOR: JOSE ALFREDO HENDERSON MD BIRTHDATE: [birth year] DOS: 07/31/2018 CARDIOLOGY PROGRESS NOTE SUBJECTIVE: The patient was seen in the dialysis unit today during an episode of a routine scheduled dialysis. She seems to be tolerating the procedure well and her blood pressures have been stable lately. She still has a chest tube in her left chest and it continues to drain blood-tinged fluid. Cytology is pending. PHYSICAL EXAMINATION: VITAL SIGNS: Her pulse is 60 and regular, blood pressure is 128/81. She is afebrile. She weighs 63.7 kg and has a body mass index of 24.1. HEENT: Normocephalic, atraumatic. Extraocular muscles are intact. Sclerae are clear. Pupils are round and react to light. The oral mucosa is moist. Tongue is midline. NECK: Supple. She has no jugular distention. Carotids are full. LUNGS: Respirations are unlabored. She does have some pleuritic pain at the site of her chest tube insertion. She has decreased breath sounds at the left base, but otherwise her lungs are clear. There are no wheezes. HEART: Has a regular rhythm with distant tones. ABDOMEN: Soft and normally active. EXTREMITIES: Showed no edema. She does seem to be stable from a cardiac standpoint and I believe that her fluid is at least in part due to her history of inadequate dialysis. IMPRESSION: 1. Acute respiratory distress with hypoxemia -- improved. 2. Large left pleural effusion, status post thoracentesis. 3. End-stage renal disease. 4. Atrial fibrillation with a controlled ventricular response. 5. Essential hypertension. 6. History of stroke prophylaxis, utilizing apixaban. PLAN: As noted above, we will continue supportive care. I did encourage the patient to get her dialysis as scheduled, because I told her that there was a good chance that the fluid in her lungs was at least partially related to her inadequate dialysis sessions. She seemed surprised at that. For now, I think we will continue to withhold stroke prophylactic anticoagulants since the risk of bleeding with dialysis is high and the risk of stroke is relatively low in this situation. I thank the hospitalist physicians for asking our advice regarding her care. [place], [place] PROGRESS NOTE NAME: VIANCA MELO UNIT #: [id number] ROOM: 529 DOCTOR: JOSE ALFREDO HENDERSON MD BIRTHDATE: [birth year] JOSE ALFREDO HENDERSON MD CM:PNTRANS 0923 JOSE ALFREDO HENDERSON MD 08/01/18 1359 interface
--- NOTE | ~2018-07-25 | PR ---
[place], [place] PROGRESS NOTE NAME: VIANCA MELO [facility] #: [id number] UNIT #: [id number] ROOM: 529 DOCTOR: RAJINDER MENG MD,ADAN BIRTHDATE: [birth year] DOS: 08/01/2018 SUBJECTIVE: The patient has been noted comfortable at this time, resting on the bed without any acute distress. Chest tube drainage has been noted essentially none in the last 24 hours. She has been noted without any distress or chest pain or other acute symptoms. OBJECTIVE: VITAL SIGNS: For the patient which has been recorded shows a normal temperature, respiratory rate 16, heart rate 67, blood pressure 135/70-140/70, pulse oxygen saturation 3 liters nasal cannula 98% saturation. HEENT: Examination shows head was atraumatic. Eyes nonicterus. NECK: Supple. CARDIOVASCULAR: S1, S2 audible. LUNGS: Clear to auscultation bilaterally. ABDOMEN: Soft and nontender. Bowel sounds present. EXTREMITIES: No acute change. IMPRESSION: Stable respiratory status, resolution of the pleural fluid at this time. Cytology of pleural fluid noted, still pending. Acid fast smear negative with pending culture results. The chest x-ray noted with resolution of pleural fluid remain completely expanded on today's assessment. PLAN OF MANAGEMENT: The chest tube has been removed at the bedside. She could be considered for home discharge. Outpatient followup should be established for further assessment of current pleural fluid. Usual care. ADAN CALVILLO MD CM:PNTRANS 1124 [id number] ADAN MENG MD 08/01/18 1211 interface
--- NOTE | ~2018-07-25 | PR ---
[place], [place] PROGRESS NOTE NAME: VIANCA MELO [facility] #: [id number] UNIT #: [id number] ROOM: 529 DOCTOR: RAJINDER MENG MD,ADAN BIRTHDATE: [birth year] DOS: 07/29/2018 PULMONARY PROGRESS NOTE SUBJECTIVE: The patient remained the same. The patient was planned for dialysis today, had received the one dialysis yesterday. She has not been noted symptoms of chest pain, coughing, or sputum expectoration and symptoms of fever or chills. Denies symptoms of nausea, vomiting, diarrhea or pain of the lower extremities. Denies symptoms of headache or diplopia. Remaining systems reviews were noted all negative. PHYSICAL EXAMINATION: VITAL SIGNS: For the patient which has been recorded shows a normal temperature, respiratory rate 18, heart rate 81, blood pressure 132/63. The pulse oxygen saturation of the patient recorded on 1 liter nasal cannula at 98% saturation. HEENT: Examination shows head was atraumatic. Eyes nonicterus. NECK: Supple. CARDIOVASCULAR: S1, S2 audible. LUNGS: Decreased breath sounds noted in the left lung. ABDOMEN: Soft, nontender, bowel sounds present. EXTREMITIES: The patient noted no acute change at this time. VISIBLE SKIN: No lesions or rashes. MUSCULOSKELETAL: Noted to continue with deformities. CENTRAL NERVOUS SYSTEM: Intact. No focal deficit. LABORATORY DATA: CT scan of the chest and the patient's CTA that was performed yesterday was reviewed shows a moderate to large pleural fluid on left side, which was noted partially loculated. The largest loculation noted in the left upper chest has moderate in the left lower lobe area. Area of compression atelectasis noted. There were no visible mass lesions were noted. The left lung was noted clear. There was no evidence of pulmonary embolism in the pulmonary arterial trunk. The renal function panel for this morning for the patient, BUN 59, creatinine 9.39. The potassium was normal. IMPRESSION: The patient's large pleural fluid left side, etiology unclear, will be undergoing a chest tube thoracostomy for the management of large loculated pleural fluid. The ultrasound of the chest was performed at the bedside and the determination for the chest tube was made. The consent for the patient was also obtained from the patient. Other additional treatment changes will be ordered based on the progression of the illness. [place], [place] PROGRESS NOTE NAME: VIANCA MELO UNIT #: [id number] ROOM: 529 DOCTOR: ADAN PLASCENCIA MD BIRTHDATE: [birth year] ADAN CALVILLO MD CM:PNTRANS 1004 [id number] ADAN MENG MD 07/29/18 1039 interface
--- NOTE | ~2018-07-25 | PROC NOTE ---
[place], [place] PROCEDURE NOTE [id number] UN[facility] #: [id number] ROOM: 529 DOCTOR: RAJINDER MENG MD,ADAN BIRTHDATE: [birth year] DOS: 07/29/2018 PREOPERATIVE DIAGNOSIS: The patient has a large loculated left pleural fluid. POSTOPERATIVE DIAGNOSES: Successful insertion of the chest tube #20 [place]er into the left pleural space without difficulty. COMPLICATIONS: None. PROCEDURE DESCRIPTION: Informed consent was obtained for the patient, ultrasound of the chest was already performed in situ of the chest tube insertion. Skin was cleaned with chlorhexidine solution. A 1% lidocaine was administered in the skin and intercostal space. During admission of local anesthetic, the left pleural space was entered. Small amount of fluid was aspirated. After large bore needle entered into the left pleural fluid. The syringe was removed leaving the needle in place. Guidewire threaded through the needle into pleural space. Needle was subsequently removed leaving the guidewire in place. Incision given in the skin at site of the insertion of chest tube where the guidewire is present. The tract was dilated up to 22-H[place]er with plastic dilators. A 20-H[place]er chest tube inserted over the wire by Seldinger technique up to 10 cm armaan without difficulty. The samples of the pleural fluid was removed for further analysis, chemistry, cultures, cytology and others. The chest was connected to the Pleur-Evac suction, which will be continued about an hour to the gravity drainage later was connected to suction. Chest x-ray will be obtained this afternoon as well. Pleural fluid of the patient will be analyzed. ADAN CALVILLO MD CM:PROCNOTE:PROCEDURE NOTE 1005 1126 ADAN MENG MD
--- NOTE | ~2018-07-25 | PR ---
[place], [place] PROGRESS NOTE NAME: VIANCA MELO [facility] #: [id number] UNIT #: [id number] ROOM: 529 DOCTOR: JOSE ALFREDO HENDERSON MD BIRTHDATE: [birth year] DOS: 07/28/2018 CARDIOLOGY PROGRESS NOTE SUBJECTIVE: The patient was seen at her bedside with her and daughter in attendance today 07/28/2018. She is comfortable while lying still on oxygen, but still states that she gets breathless if she takes the oxygen off or goes to the bathroom. She denies any chest pain. She did have a CT angiogram of her chest today. The study showed no evidence for pulmonary emboli, but did show a large left pleural effusion with compressive atelectasis of the left upper lobe and left lower lobe. No masses were mentioned. Her heart was found to be enlarged, but there was no pericardial effusion. PHYSICAL EXAMINATION: VITAL SIGNS: Her pulse is 73 and irregularly irregular. Blood pressure is 150/61. She weighs 62.4 kg and has a body mass index of 23.6. NECK: Supple. She does not have jugular distention. Carotids are full. LUNGS: Respirations are unlabored at rest. Her right lung is clear. She has dullness and decreased breath sounds assisted up on the left. There is no presacral edema. HEART: Has an irregularly irregular rhythm without murmurs or gallops. ABDOMEN: Benign. EXTREMITIES: Showed trace edema at the ankles. LABORATORY DATA: Hemoglobin is 10.0, white count 2900. Sodium 139, potassium 5.4, BUN 43, creatinine 7.82. IMPRESSION: 1. Acute respiratory distress with hypoxemia, improved. 2. Large left pleural effusion. 3. End-stage renal disease. 4. Atrial fibrillation with controlled ventricular response. 5. Essential hypertension. 6. The patient is on Eliquis for stroke prophylaxis. PLAN: She is scheduled to have dialysis again tomorrow. It is my understanding that Dr. Moreno, her vp organizational development, may also consider a thoracentesis tomorrow. We will withhold apixaban for the time being until Dr. Moreno is able to do the thoracentesis. We will discuss whether or not we will resume the drug afterwards. I thank the hospitalist physicians for asking our advice regarding her care. [place], [place] PROGRESS NOTE NAME: VIANCA MELO UNIT #: [id number] ROOM: 529 DOCTOR: JOSE ALFREDO HENDERSON MD BIRTHDATE: [birth year] JOSE ALFREDO HENDERSON MD CM:PNTRANS 1404 [id number] JOSE ALFREDO HENDERSON MD 07/29/18 0621 interface
--- NOTE | ~2018-07-25 | PR ---
[place], [place] PROGRESS NOTE NAME: VIANCA MELO [facility] #: [id number] UNIT #: [id number] ROOM: 529 DOCTOR: JOSE ALFREDO HENDERSON MD BIRTHDATE: [birth year] DOS: 07/26/2018 CARDIOLOGY PROGRESS NOTE SUBJECTIVE: The patient was seen at her bedside today, 07/26/2018, for followup of atrial fibrillation and a large left pleural effusion. She is a 78-year-old woman who does have a history of end-stage renal disease on dialysis, coronary artery disease with percutaneous intervention to the first diagonal, hypertension, hyperlipidemia, gastroesophageal reflux disease, and paroxysmal atrial fibrillation. Recently, she was hospitalized at the [facility] for revision of a left arm AV fistula. The fistula was apparently removed and a temporary dialysis catheter was placed in her right chest. She came in to the hospital now because of worsening shortness of breath and was found to have a large left pleural effusion. Evaluation is in progress and a thoracentesis is being contemplated. The patient states that she is well as long as she uses supplemental oxygen, but last evening, removed the oxygen to go to the bathroom and became extremely dyspneic again. PHYSICAL EXAMINATION: VITAL SIGNS: Today, her pulse is 100 and irregularly irregular. Blood pressure is 112/50. She is afebrile. NECK: Supple. She has no jugular distention. Carotids are full. LUNGS: Respirations are unlabored at rest. She has markedly decreased breath sounds in the left lung with dullness at the left base. Her right lung is clear. HEART: Her heart has an irregularly irregular rhythm without murmurs or gallops. ABDOMEN: Benign. EXTREMITIES: Showed trace edema at the ankles. LABORATORY DATA: Chest x-ray on 07/26/2018 showed cardiomegaly. There is evidence for a large left pleural effusion. A dialysis catheter is present in the right chest. The right lung does not show signs of vascular congestion or infiltrate. IMPRESSION: 1. Acute respiratory distress with hypoxemia. 2. Large left pleural effusion. 3. End-stage renal disease. 4. Paroxysmal atrial fibrillation. The patient is in atrial fibrillation at the present time. 5. Essential hypertension. 6. Stroke prophylaxis with Eliquis. PLAN: The patient is being dialyzed daily to try to normalize her fluid balance. She is also being evaluated by the reservation manager for consideration of thoracentesis. For now, we will keep her on a direct oral anticoagulant for stroke prophylaxis and treat her with rate control strategies for her atrial [place], [place] PROGRESS NOTE [id number] UN[facility] #: [id number] ROOM: 529 DOCTOR: JOSE ALFREDO HENDERSON MD BIRTHDATE: [birth year] fibrillation. No other cardiac workup is planned at this time. We thank the hospitalist physicians for asking our advice regarding her care. JOSE ALFREDO HENDERSON MD CM:PNTRANS 1455 JOSE ALFREDO HENDERSON MD 07/27/18 0031 interface
[~2018-07-25 09:20] MED LIST changes: -ATORVASTATIN CA40 M1 PO; -AURYXIA210 MG PO; -CLOPIDOGREL75 MG PO; -COLACE100 MG PO; -ELIQUIS5 M1 PO; -METOPROLOL SUCC50 M1 PO; -NATURE'S BLEND F1 MG PO; -NORCO 5-325 TA1 EACH PO; -PROTONIX40 MG PO; -ROCALTROL0.25 MC2 PO; -SIMVASTATIN20 MG PO; -VITAMIN D32000 UNI1 PO
[2018-07-25 09:21] VITALS: BP 157/86
--- NOTE | 2018-07-25 09:35 | NUR ---
PLACED ON NC 2LMP NC PER PT REQUEST. STATES SHE FEELS BETTER WITH THE OXYGEN O AND FEELS BETTER SITTING UP IN BED.
[2018-07-25 09:50] LABS: BASO # 0.1 10*3/uL (0.0-0.1); BASO % 1.7 % (0.0-1.0); EOS # 0.1 10*3/uL (0.0-0.4); EOS % 2.8 % (1.0-4.0); HEMATOCRIT 38.7 % (37.0-47.0); HEMOGLOBIN 11.6 g/dl (12.0-16.0); LYMPH # 0.5 10*3/uL (1.3-4.4); LYMPH % 12.6 % (27.0-41.0); MEAN CELL VOLUME 97.2 fl (81.0-99.0); MEAN CORPUSCULAR HGB 29.1 pg (27.0-31.0); MEAN PLATELET VOLUME 10.1 fl (9.6-12.3); MONO # 0.4 10*3/uL (0.1-1.0); MONO % 11.8 % (3.0-9.0); NEUT # 2.5 10*3/uL (2.3-7.9); NEUT % 70.5 % (47.0-73.0); PLATELET COUNT AUTOMATED 186 10*3/uL (130-400); RED BLOOD COUNT 3.98 10*6/uL (4.10-5.10); RED CELL DISTRI WIDTH 15.4 % (0-14.5); WHITE BLOOD COUNT 3.6 10*3/uL (4.8-10.8)
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
[2018-07-25 09:59] LABS: ACT PARTIAL THROMBO TIME 24.2 SECONDS (20.8-31.5); INTERNATIONAL NORM RATIO 1.1 (2.0-3.5)
[2018-07-25 10:06] LABS: ABG HCO3 29.6 mmol/l (22-26); ABG O2 SATURATION 99.9 % (95-97); ARTERIAL BLOOD GAS PCO2 39.5 mmHg (35-45); ARTERIAL BLOOD GAS PH 7.486 (7.35-7.45)
[2018-07-25 10:07] LABS: ALBUMIN 3.2 gm/dl (3.1-4.5); CREATININE 5.45 mg/dL (0.55-1.02); POTASSIUM 4.8 mmol/L (3.5-5.1); TOTAL PROTEIN 7.8 gm/dL (6.4-8.2); TROPONIN I 0.045 ng/ml (<0.045)
[2018-07-25 10:41] VITALS: BP 160/90
[2018-07-25 11:20] VITALS: BP 120/78
--- NOTE | 2018-07-25 11:20 | NUR ---
A 78, admitted to , under the services of JESU Seals DO with a diagnosis of SHORTNESS OF BREATHE,RENAL DISEASE. Chief complaint is SHORTNESS OF BREATH. Patient arrived via bed from ER. Monitor applied. Initial assessment completed. Vital signs taken and recorded. JESU SEALS DO notified of admission to the unit. Orders received. See assessment for past medical history, medications and allergies. Patient and/or family oriented to unit. [facility]. Clothing/patient valuable form completed. DAVID FRANZ
--- NOTE | 2018-07-25 11:32 | NUR ---
DR. BARBER ON THE FLOOR TO SEE PT.
--- NOTE | 2018-07-25 11:32 | NUR ---
CALLED JOSE FLEMING PT IN ROOM AND DR. BARBER WANTS TO DO DIALYSIS TODAY. SHE WILL PUT CONSULT IN.
[2018-07-25] MEDS ORDERED: SIMVASTATIN20 MG PO (11:38)
--- NOTE | 2018-07-25 11:43 | NUR ---
AWARE OF CONSULT. IN WITH PT AT THIS TIME DISCUSSING TREATMENTS.
[2018-07-25 12:00] VITALS: BP 120/76
--- NOTE | 2018-07-25 12:53 | NUR ---
MADE AWARE OF CONSULT. SAID HE WOULD BE IN TO SEE THE PT TOMORROW, WEATHER PERMITTING.
--- NOTE | 2018-07-25 13:13 | NUR ---
ORDER FROM JOSE TYLER TO NOT REMOVE PRESSURE DRESSING FROM LEFT ARM DUE TO VASCULAR SURGERY PREFORMED LAST WEEK IN [facility] ON PTs FISTULA.
--- NOTE | 2018-07-25 14:28 | NUR ---
PT DOWN FOR DIALYSIS.
--- NOTE | 2018-07-25 14:36 | NUR ---
Attempted PT evaluation at 1432 and pt is in dialysis.
[2018-07-25 16:00] VITALS: BP 153/94
--- NOTE | 2018-07-25 17:37 | NUR ---
PT BACK TO ROOM FROM DIALYSIS. VSS.
--- NOTE | 2018-07-25 17:46 | NUR ---
PT SITTING IN BED, EATING. NO VOICED COMPLAINTS AT THIS TIME. CALL LIGHT IN REACH. VSS.
[2018-07-25 20:00] VITALS: BP 143/75
[2018-07-26] VITALS: BP 156/97
[2018-07-26 06:11] LABS: BASO % 0.8 % (0.0-1.0); EOS # 0.1 10*3/uL (0.0-0.4); EOS % 4.6 % (1.0-4.0); HEMATOCRIT 34.1 % (37.0-47.0); HEMOGLOBIN 10.2 g/dl (12.0-16.0); LYMPH # 0.4 10*3/uL (1.3-4.4); LYMPH % 15.8 % (27.0-41.0); MEAN CELL VOLUME 96.9 fl (81.0-99.0); MEAN CORPUSCULAR HGB CONC 29.9 g/dl (33.0-37.0); MEAN PLATELET VOLUME 9.8 fl (9.6-12.3); MONO # 0.4 10*3/uL (0.1-1.0); MONO % 15.8 % (3.0-9.0); NEUT # 1.6 10*3/uL (2.3-7.9); PLATELET COUNT AUTOMATED 167 10*3/uL (130-400); RED BLOOD COUNT 3.52 10*6/uL (4.10-5.10); RED CELL DISTRI WIDTH 15.5 % (0-14.5); WHITE BLOOD COUNT 2.6 10*3/uL (4.8-10.8)
[2018-07-26 06:42] LABS: ALBUMIN 2.7 gm/dl (3.1-4.5); CREATININE 6.61 mg/dL (0.55-1.02); FREE T4 1.15 ng/dl (0.76-1.46); PHOSPHOROUS 5.7 mg/dL (2.5-4.9); POTASSIUM 4.7 mmol/L (3.5-5.1); TOTAL PROTEIN 6.6 gm/dL (6.4-8.2)
[2018-07-26 06:47] LABS: THYROID STIM HORMONE (HS) 4.18 uIU/ml (0.358-4.75)
--- NOTE | 2018-07-26 07:15 | NUR ---
BEDSIDE RPORT OBTAINED FROM [facility]. PATIENT RESTING COMFORTABLY IN BED, EYES CLOSED. NO S&S OF DISTRESS NOTED, RESP ARE ERND ON O2 2LPM NC FOR COMFORT. BED IS LOCKED IN LOWEST POSITION, CALL LIGHT LEFT WITHI NREACH.
--- NOTE | 2018-07-26 07:20 | NUR ---
PATIENT TAKEN BACK TO DIALYSIS ROOM.
[2018-07-26 07:31] LABS: VITAMIN D, 25-HYDROXY 24.9 ng/mL (30-100)
--- NOTE | 2018-07-26 07:46 | NUR ---
INFORMED THAT PATIENT IS C/O 02/14 TO SURGICAL SITE AND TESIO INSERTION SITE. PATIENT ONLY HAS TYLENOL ORDERED AND THAT WILL BE INEFFECTIVE D/T HD. STATES HE WILL LOOK IN HER CHART.
[2018-07-26 08:00] VITALS: BP 155/88
--- NOTE | 2018-07-26 08:09 | NUR ---
PATIENT MEDICATED WITH 1X DOSE OF IV MORPHINE. WILL MONITOR.
--- NOTE | 2018-07-26 08:17 | NUR ---
RADIOLOGY STATED THAT PATIENT IS UNABLE TO HAVE CTA DONE TODAY D/T ALREADY BEING IN DIAYSIS. STATES CAN ONLY BE DONE SATURDAY NIGHT OR SATURDAY MORNING.
--- NOTE | 2018-07-26 09:09 | NUR ---
PATIENT VOCIED NO COMPLAINT, MORPHINE EFFECTIVE FOR PAIN. PATIENT IS STILL IN DIALYSIS AT THIE TIME.
--- NOTE | 2018-07-26 09:50 | NUR ---
REPORT OBTAINED FROM SONIA-SOURCING CONSULTANT NURSE. 1.3 KILOS REMOVED DURING SESSION, VSS.
--- NOTE | 2018-07-26 09:50 | NUR ---
PATIENT RETURNED FROM DIALYSIS. VOICED NO COMPLAINTS AT THIS TIME. CALL MAYDA LEFT WITHIN REACH.
--- NOTE | 2018-07-26 10:00 | NUR ---
DRESSING CHANGE COMPLETED TO LUE/LFA. STABLE ARE INTACT, SITE IS CLEAN NO REDDNESS,WARMTH,DRAINAGE OR ODOR PRESENT. PROTRUDING HEMATOMA PRESENT FROM WHERE FISTUAL WAS REMOVED AND SITE IS DEEP/DARK PURPLE/BRUISED. PATIENT VOICED NO COMPLAINTS. ARINA WRAP APPLIED PER ORDERS.
[2018-07-26] MEDS ORDERED: AURYXIA210 MG PO (10:03)
--- NOTE | 2018-07-26 10:08 | NUR ---
PATIENT BROUGHT AURYXIA FROM HOME. MEDICATION LIST UPDATED, INFORMED. MEDICATION SENT TO PHARMACY TO BE TAGGED.
[2018-07-26 12:00] VITALS: BP 112/51
[2018-07-26 16:00] VITALS: BP 112/58
--- NOTE | 2018-07-26 16:00 | NUR ---
PATIENT SITTING UP AT BEDSIDE. AWAKE & ALERT, VOICED NO COMPAINTS AT THIS TIME. CALL LIGTH LEFT WITHIN REACH.
[2018-07-26 20:00] VITALS: BP 116/50
[2018-07-27] VITALS: BP 135/79
[2018-07-27 06:12] LABS: EOS # 0.1 10*3/uL (0.0-0.4); EOS % 4.9 % (1.0-4.0); HEMATOCRIT 33.7 % (37.0-47.0); LYMPH # 0.6 10*3/uL (1.3-4.4); LYMPH % 19.4 % (27.0-41.0); MEAN CELL VOLUME 97.1 fl (81.0-99.0); MEAN CORPUSCULAR HGB 28.8 pg (27.0-31.0); MEAN CORPUSCULAR HGB CONC 29.7 g/dl (33.0-37.0); MEAN PLATELET VOLUME 9.2 fl (9.6-12.3); MONO # 0.5 10*3/uL (0.1-1.0); MONO % 16.7 % (3.0-9.0); NEUT # 1.7 10*3/uL (2.3-7.9); NEUT % 57.7 % (47.0-73.0); PLATELET COUNT AUTOMATED 169 10*3/uL (130-400); RED BLOOD COUNT 3.47 10*6/uL (4.10-5.10); RED CELL DISTRI WIDTH 15.6 % (0-14.5); WHITE BLOOD COUNT 2.9 10*3/uL (4.8-10.8)
[2018-07-27 06:42] LABS: CREATININE 6.34 mg/dL (0.55-1.02); PHOSPHOROUS 5.7 mg/dL (2.5-4.9); POTASSIUM 4.4 mmol/L (3.5-5.1)
[2018-07-27 08:00] VITALS: BP 128/52
--- NOTE | 2018-07-27 10:21 | NUR ---
NOTIFIED REGARDING CT UNABLE TO DO CTA TODAY UNLESS PATIENT WOULD BE GOING TOMORROW FOR DIALYSIS. WILL NOTIFY PER .
--- NOTE | 2018-07-27 10:34 | NUR ---
'S ANSWERING SERVICE CALLED REGARDING CTA. BRUSH PAINTER. AWAITING RETURN PHONE CALL.
--- NOTE | 2018-07-27 10:37 | NUR ---
NOTIFIED REGARDING CTA. PATIENT WILL HAVE DIALYSIS TOMORROW. CT INFORMED AND PATIENT WILL HAVE CTA DONE TOMORROW AM.
--- NOTE | 2018-07-27 11:22 | NUR ---
PHYSICAL THERAPY attemted pt eval today on level 5 however patient refuses PT today stating she cannot participate today as she is too tired and not able to walk. will attempt pt eval tomorrow. thank you for referral olga mi pt
[2018-07-27 12:00] VITALS: BP 113/56
--- NOTE | 2018-07-27 12:31 | NUR ---
PT REFUSING DRESSING CHANGE TO LEFT 2ND TOE. SCAB INTACT.
--- NOTE | 2018-07-27 12:37 | NUR ---
DRESSING CHANGED TO LEFT ARM PER ORDER. MCKENNA INTACT. NO DRAINAGE NOTED. PT TOLERATED WELL.
[2018-07-27 16:00] VITALS: BP 110/54
--- NOTE | 2018-07-27 17:15 | NUR ---
HERE AND NOTIFIED REGARDING CTA TOMORROW MORNING.
[2018-07-27 20:00] VITALS: BP 104/52
--- NOTE | 2018-07-27 20:02 | NUR ---
24 HR chart check completed.
[2018-07-28] VITALS: BP 135/62
[2018-07-28 06:52] LABS: CREATININE 7.82 mg/dL (0.55-1.02)
[2018-07-28 06:58] LABS: POTASSIUM 5.4 mmol/L (3.5-5.1)
--- NOTE | 2018-07-28 07:34 | NUR ---
PT TAKEN OFF FLOOR BY WHEELCHAIR FOR CT SCAN.
--- NOTE | 2018-07-28 07:50 | NUR ---
PT RETURNED TO FLOOR VIA WHEELCHAIR
[2018-07-28 08:00] VITALS: BP 108/68
--- NOTE | 2018-07-28 09:20 | NUR ---
VIANCA MELO Zora [id number] Please refer to the physician's history and physical for past medical history, comorbid conditions, and allergies. 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 pt stated she fell prior to coming in to the hospital and hit it Location of the wound: left upper arm proximal Type of wound: surgical Size: 4.0cm x 0.1cm x <0.1cm Tunneling: none Undermining: none Sinus Tract: none Presence of Exudate: none Amount: None Color: [place] Odor: None Periwound Skin Appearance: Normal Wound edges: approximated with 7 micheal Pain (associated with wound): none at time of assessment How does patient state this happened? pt stated she [facility] and has a follow up appointment on 08/05/18. Patient stated she is to keep it clean and dry and keep the geeta wrap intact. Location of the wound: left upper arm medial Type of wound: surgical Size: 4.5cm x 0.1cm x <0.1cm Tunneling: none Undermining: none Sinus Tract: none Presence of Exudate: none Amount: None Color: [place] Odor: None Periwound Skin Appearance: Normal Wound edges: approximated with 7 micheal Pain (associated with wound): none at time of assessment How does patient state this happened? pt stated she had surgery with Dr. Teena Perez in [facility] and has a follow up appointment on 08/05/18. Patient stated she is to keep it clean and dry and keep the geeta wrap intact. Location of the wound: left upper arm distal Type of wound: surgical Size: 3.0cm x 0.2cm x <0.1cm Tunneling: none Undermining: none Sinus Tract: none Presence of Exudate: none Amount: None Color: [place] Odor: None Periwound Skin Appearance: Normal Wound edges: approximated with 6 micheal Pain (associated with wound): none at time of assessment How does patient state this happened? pt stated she had surgery with Dr. Dickinson out [facility] in [facility] and has a follow up appointment on 08/05/18. Patient stated she is to keep it clean and dry and keep the geeta wrap intact. Surface the patient is resting on: Isoflex SKIN PREVENTION RECOMMENDATION: 1. Pressure redistribution support surface as appropriate 2. Elevate heels 3. Remove boots/TEDS every shift and reapply 4. Head of bed 30 degrees as tolerated 5. Assess nutrition and hydration 6. Manage moisture 7. Avoid the use of containment devices while in bed 8. Use absorptive products on surfaces limit layers of linens on bed 9. Turn and reposition every 1-2 hours in bed and every 1 hour in chair as tolerated 10. Weight shifts every 15 minutes while up in chair 11. Offloading with pillows or device to keep heels elevated off bed 12. Monitor skin at least every shift 13. Inspect under medical devices twice a day WOUND TREATMENT RECOMMENDATIONS: Continue dressing change to left upper arm per md. Continue stage 2 guidelines to left 2nd toe. Patient stated she is going to keep her follow up appointment with Dr Dickinson on 08/05/18. She stated she doesn't need to follow up with anyone for the area on her toe she stated she can care for that area at home.
--- NOTE | 2018-07-28 10:08 | NUR ---
Pt approached for physical therapy assessment this date. She was sitting at edge of bed eating her breakfast. She was asked to identify herself by name and birthdate and she stated, "I already told you all this and I'm not telling you again." She also refused therapy evaluation this AM, stating that she cannot breath and cannot walk. Will attempt at a later date. Merly Hanna, PT
--- NOTE | 2018-07-28 10:40 | NUR ---
Patient refused to participate with OT eval this am despite encouragement. Will check back for OT eval pending patient's willingness to participate. Evonne Snider OTR/L
--- NOTE | 2018-07-28 10:42 | NUR ---
Dr. Michele notified of wound care recommendations.
[2018-07-28 12:00] VITALS: BP 150/61
--- NOTE | 2018-07-28 12:00 | NUR ---
SPOKE TO DIALYSIS NURSE REGARDING DIALYSIS TODAY AFTER THE PT STATES SHE WAS TOLD SHE WOULD BE GETTING IT AFTER HER CT SCAN THIS MORNING. THE DIALYSIS NURSE STATED THAT SHE TALKED TO DR. BARBER WHO SAID SHE WOULD NOT BE GETTING DIALYSIS TODAY BECAUSE SHE IS GETTING DIALYISIS TOMORROW. PT MADE AWARE
--- NOTE | 2018-07-28 12:48 | NUR ---
Gas Pumper in to talk to patient. Patient states lives at HOME with . There are NO steps in the home. Physician: Oleksandr WAGNER Pharmacy: [facility] Home health services: NONE Patient's level of ADLs: INDEPENDENT Patient has working utilities: YES DME: NONE Follow-up physician's appointment after d/c: WILL BE MADE BY HOSPITALIST NURSE DIRECTOR ON DISCHARGE Does patient want to access PORTAL?: NO Discharge plan PT STATES SHE LIVES HOME WITH . TALKED TO PT ABOUT HOME HEALTH OR SNF BUT SHE REFUSES BOTH, STATES I AM GOING HOME. STATES HER WILL TAKE HER HOME ON DISCHARGE. WILL CONTINUE TO FOLLOW. . STACY HOUSTON
--- NOTE | 2018-07-28 14:57 | NUR ---
Pt refused physical therapy assessment this PM. Will check with pt in AM. Merly Hanna, PT
--- NOTE | 2018-07-28 19:43 | NUR ---
PATIENT RESTING IN BED WITH NO NEEDS MADE. C/O LEFT ARM SWELLING. TRADE EDEMA NOTED IN LOWER ARM. ARM IS WRAPPED IN ARINA WRAP BY PREVIOUS SHIFT. MCKENNA INTACT IN LEFT AC FROM OLD FISTULA. EDEMA AND ECCHYMOSIS NOTED IN FISTULA AREA. PATIENT STATES THIS IS NOT NEW. ARM RAISED ON PILLOW. WILL CONTINUE TO MONITOR. BED IN LOWEST POSITION, CALL LIGHT IN REACH
[2018-07-28 20:00] VITALS: BP 132/63
--- NOTE | 2018-07-28 20:58 | NUR ---
PATIENT MEDICATED WITH PRN TYLENOL FOR C/O PAIN NEAR TESSIO PLACEMENT. WILL MONITOR
[2018-07-29] VITALS: BP 144/69
[2018-07-29 06:53] LABS: ALBUMIN 2.9 gm/dl (3.1-4.5); CREATININE 9.39 mg/dL (0.55-1.02); PHOSPHOROUS 8.1 mg/dL (2.5-4.9); POTASSIUM 4.7 mmol/L (3.5-5.1)
[2018-07-29 07:13] LABS: INTERNATIONAL NORM RATIO 1.1 (2.0-3.5)
[2018-07-29 08:00] VITALS: BP 138/78; BP 154/80
--- NOTE | 2018-07-29 08:50 | NUR ---
DR. CALVILLO IN TO INSERT CHEST TUBE. PT TOLERATED WELL. PLEURAL FLUID SAMPLES SENT TO LAB AND ABG'S OBTAINED. ORDERS GIVEN. WILL MONITOR PT
--- NOTE | 2018-07-29 09:09 | NUR ---
PT TAKEN TO DIALYSIS
[2018-07-29 09:43] LABS: BODY FLUID WBC 418 /uL
[2018-07-29 10:04] LABS: BF LYMPHOCYTES 49 %; BF MACROPHAGES 46 %; BF MESOTHELIALS 2 %; BF MONOCYTES 1 %
--- NOTE | 2018-07-29 10:47 | NUR ---
PRN NORCO GIVEN FOR C/O 10/10 PAIN IN HER BACK. WILL MONITOR FOR EFFECTIVENESS.
--- NOTE | 2018-07-29 11:53 | NUR ---
PT BACK FROM DIALYSIS. REPORT GIVEN FROM DIALYISIS NURSE. 1.3 KILO'S OF FLUID WAS REMOVED. PREWEIGHT: 62.3 POSTWEIGHT: 61. VITAL SIGNS STABLE AT THIS TIME
[2018-07-29 12:00] VITALS: BP 135/89
--- NOTE | 2018-07-29 12:30 | NUR ---
PRN ORDER FOR NORCO INEFFECTIVE PER PT. SHE STILL RATES HER PAIN A 10/10. DR. HOLDER NOTIFIED.
--- NOTE | 2018-07-29 13:29 | NUR ---
ORDER FOR DILAUDED GIVEN. WILL MONITOR FOR EFFECTIVENESS OF MEDICATION
--- NOTE | 2018-07-29 14:19 | NUR ---
DILAUDID EFFECTIVE PER PT ASSESSMENT. PT IS ASLEEP AT THIS TIME WITH NO S/S OF PAIN OR DISTRESS. RESPIRATIONS ARE EASY & REGULAR. SHE IS CURRENTLY AFIB ON THE MONITOR WITH A HEART RATE IN THE 60'S. CHEST TUBE IS PATENT & DRAINING PLEURAL FLUID. WILL CONTINUE TO MONITOR PT
--- NOTE | 2018-07-29 15:45 | NUR ---
Occupational Therapy evaluation offered to patient this pm. Patient sitting upright in bed with new chest tube draining and she had returned from dialysis this am. Patient responded that she "could not move" and appearred very uncomfortable. WHen OTR asked if she could assist patient in any way patient responded no. OTR notified professional nursing assistant of patients discomfort and professional nursing assistant entered room to check on patient. OTR will recheck at a later date. Monster Roberto OtR/maikel
[2018-07-29 16:00] VITALS: BP 150/56
--- NOTE | 2018-07-29 16:30 | NUR ---
Pt declined PT evaluation reporting she had a chest tube insertion and hemodialysis this date and that she is tired and did not feel well. Plan to attempt evaluation at later date. Haritha Cano, PT
--- NOTE | 2018-07-29 18:40 | NUR ---
PT REQUESTED AND RECIEVED PRN ORDER FOR DILAUDID. WILL MONITOR FOR EFFECTIVENESS OF MED.
--- NOTE | 2018-07-29 19:22 | NUR ---
PATIENT RESTING IN BED WITH NO S/S OF DISTRESS. ARROUSES EASILY. RESPS EASY AND REGULAR. CHEST TUBE DRESSING DRY AND INTACT. CHEST TUBE TO LOW SUCTION AT 20. WILL MONITOR. BED IN LOWEST POSITION, CALL LIGHT IN REACH
--- NOTE | 2018-07-29 19:49 | NUR ---
24 HR chart check completed.
[2018-07-29 20:00] VITALS: BP 138/78
--- NOTE | 2018-07-29 23:00 | NUR ---
PATIENT RESTING IN BED WITH EYES CLOSED. NO S/S OF DISTRESS. CHEST TUBE DRESSING DRY AND INTACT. CHEST TUBE TO SUCTION. BED IN LOWEST POSITION, CALL LIGHT IN REACH
[2018-07-30] VITALS (7 sets, daily range): BP systolic 123–150; BP diastolic 68–85
--- NOTE | 2018-07-30 02:00 | NUR ---
PATIENT RESTING IN BED WITH NO S/S OF DISTRESS. EYES CLOSED. RESPS EASY AND REGULAR. CHEST TUBE DRESSING DRY AND INTACT. BED IN LOWEST POSITION, CALL LIGHT IN REACH
--- NOTE | 2018-07-30 05:00 | NUR ---
PATIENT RESTING IN BED WITH NO S/S OF DISTRESS. RESPS EASY AND REGULAR. CHEST TUBE DRESSING DRY AND INTACT. CHEST TUBE TO SUCTION. BED IN LOWEST POSITION, CALL LIGHT IN REACH
[2018-07-30 06:52] LABS: ALBUMIN 2.7 gm/dl (3.1-4.5); CREATININE 6.64 mg/dL (0.55-1.02); PHOSPHOROUS 6.1 mg/dL (2.5-4.9); POTASSIUM 4.7 mmol/L (3.5-5.1)
--- NOTE | 2018-07-30 11:13 | NUR ---
PT CONTINUES TO DENY NEED FOR HOME HEALTH OR SKILLED CARE. WILL CONTINUE TO FOLLOW.
--- NOTE | 2018-07-30 11:50 | NUR ---
Attempted PT evaluation this morning, patient declined due to pain from chest tube placement. CHESTER HandleyT
--- NOTE | 2018-07-30 11:58 | NUR ---
Occupational Therapy evaluation offered this am. Patient declined today with c/o chest tube pain. Shara Roberto OTR/L
[2018-07-30 13:10] LABS: ACID FAST SPEC PROCESSING Direct Inoculation (.)
--- NOTE | 2018-07-30 17:46 | NUR ---
PT MEDICATED WITH PRN DILAUDID FOR C/O RIGHT SIDED BACK PAIN AT INSERTION SITE OF CHEST TUBE. PT RATES PAIN 8/10. AFTER ADMINISTRATION OF DILAUDID PT HAD ONE EPISODE OF EMESIS. DENIES NEED FOR ANTIEMETIC. NO FURTHER NAUSEA REPORTED. PT SITTING IN CHAIR EATING DINNER.
[2018-07-31] VITALS: BP 128/81
[2018-07-31 06:31] LABS: BASO % 1.1 % (0.0-1.0); EOS # 0.2 10*3/uL (0.0-0.4); EOS % 6.7 % (1.0-4.0); HEMATOCRIT 35.6 % (37.0-47.0); HEMOGLOBIN 10.7 g/dl (12.0-16.0); LYMPH # 0.5 10*3/uL (1.3-4.4); MEAN CELL VOLUME 94.4 fl (81.0-99.0); MEAN CORPUSCULAR HGB 28.4 pg (27.0-31.0); MEAN CORPUSCULAR HGB CONC 30.1 g/dl (33.0-37.0); MEAN PLATELET VOLUME 10.2 fl (9.6-12.3); MONO # 0.4 10*3/uL (0.1-1.0); MONO % 12.7 % (3.0-9.0); NEUT # 1.7 10*3/uL (2.3-7.9); NEUT % 61.1 % (47.0-73.0); PLATELET COUNT AUTOMATED 166 10*3/uL (130-400); RED BLOOD COUNT 3.77 10*6/uL (4.10-5.10); WHITE BLOOD COUNT 2.8 10*3/uL (4.8-10.8)
[2018-07-31 06:43] LABS: ALBUMIN 2.9 gm/dl (3.1-4.5); CREATININE 8.35 mg/dL (0.55-1.02); PHOSPHOROUS 7.5 mg/dL (2.5-4.9); POTASSIUM 4.9 mmol/L (3.5-5.1)
--- NOTE | 2018-07-31 07:20 | NUR ---
PATIENT WAS TRANSFERED TO DIALYSIS. QUICK ASSESSMENT DONE BEFORE TRANSFER, BUT FULL HEAD TO TOE NEEDED WHEN RETURNED.
[2018-07-31 08:12] LABS: IMMUNOGLOBULIN M, QNT 98 mg/dL (26-217); RHEUMATOID ARTHRITIS FACTOR 30.7 IU/mL (0.0-13.9)
[2018-07-31 08:15] VITALS: BP 127/78
--- NOTE | 2018-07-31 08:50 | NUR ---
Patient not available for Occupational Therapy as she is in dialysis. Mariia Roberto OTR/l
--- NOTE | 2018-07-31 08:54 | NUR ---
Pt was at hemodialysis this morning. Will follow up at later time for evaluation. Haritha Cano, PT
[2018-07-31 11:25] VITALS: BP 138/61
[2018-07-31 14:07] LABS: ALDOLASE 002030 4.9 U/L (3.3-10.3); ANGIOTENSIN-CONVERTING ENZYME <15 U/L (14-82)
[2018-07-31 15:08] LABS: IGG SUBCLASS 1 473 mg/dL (248-810); IGG SUBCLASS 2 366 mg/dL (130-555); IGG SUBCLASS 3 85 mg/dL (15-102); IGG SUBCLASS 4 32 mg/dL (2-96); IMMUNOGLOBULIN G, QNT 896 mg/dL (700-1600)
[2018-07-31 16:00] VITALS: BP 108/48
[2018-07-31 16:10] LABS: ATYPICAL PANCA 1:20 titer (Neg:<1:20); CYTOPLASMIC (C-ANCA) <1:20 titer (Neg:<1:20)
[2018-07-31 20:00] VITALS: BP 151/64
[2018-08-01] VITALS: BP 135/70
[2018-08-01 06:14] LABS: BASO % 1.3 % (0.0-1.0); EOS # 0.2 10*3/uL (0.0-0.4); EOS % 6.4 % (1.0-4.0); HEMOGLOBIN 11.1 g/dl (12.0-16.0); LYMPH # 0.5 10*3/uL (1.3-4.4); LYMPH % 14.5 % (27.0-41.0); MEAN CELL VOLUME 95.1 fl (81.0-99.0); MEAN CORPUSCULAR HGB 28.5 pg (27.0-31.0); MEAN PLATELET VOLUME 9.8 fl (9.6-12.3); MONO # 0.5 10*3/uL (0.1-1.0); MONO % 14.8 % (3.0-9.0); NEUT % 62.7 % (47.0-73.0); PLATELET COUNT AUTOMATED 162 10*3/uL (130-400); RED BLOOD COUNT 3.89 10*6/uL (4.10-5.10); RED CELL DISTRI WIDTH 14.7 % (0-14.5); WHITE BLOOD COUNT 3.1 10*3/uL (4.8-10.8)
[2018-08-01 06:35] LABS: ALBUMIN 2.8 gm/dl (3.1-4.5); CREATININE 6.16 mg/dL (0.55-1.02); PHOSPHOROUS 6.2 mg/dL (2.5-4.9); POTASSIUM 4.5 mmol/L (3.5-5.1)
--- NOTE | 2018-08-01 08:58 | NUR ---
DR CALVILLO IN TO SEE PATIENT, REMOVED CHEST TUBE. PATIENT TOLERATED PROCEDURE WELL. NO S/S OF DISTRESS. DIM LUNGS, CALL LIGHT WITHIN REACH.
[2018-08-01 09:00] VITALS: BP 140/70
[2018-08-01] MEDS ORDERED: VITAMIN D32000 UNI1 PO (10:22)
[2018-08-01] MEDS ORDERED: NATURE'S BLEND F1 MG PO (10:22)
[2018-08-01] MEDS ORDERED: ATORVASTATIN CA40 M1 PO (10:22)
[2018-08-01] MEDS ORDERED: ELIQUIS5 M1 PO (10:22)
[2018-08-01] MEDS ORDERED: CLOPIDOGREL75 MG PO (10:23)
[2018-08-01 12:00] VITALS: BP 137/83
--- NOTE | 2018-08-01 12:45 | NUR ---
PATIENT REFUSING DISCHARGE PHOTOS AT THIS TIME.
--- NOTE | 2018-08-01 13:09 | NUR ---
Discharge instructions reviewed with patient/family. Patient receptive and verbalizes understanding. Follow-up care arranged. Written instructions given to patient/family. PATIENT TAKEN FROM THE FLOOR VIA WHEELCHAIR. NO S/S OF DISTRESS. ROOPA ZHAO
[2018-08-02 05:12] LABS: IMMUNOGLOBULIN IgE 002170 59 IU/mL (0-100)
[2018-09-10 16:08] LABS: ACID FAST CULTURE Negative (.)
[2018-10-10] MEDS ORDERED: METOPROLOL SUCC50 M1 PO (16:23)
[2018-11-25] MEDS ORDERED: ROCALTROL0.25 MC2 PO (17:15)
[2018-11-25] MEDS ORDERED: PROTONIX40 MG PO (17:16)
== END 2018-08-01 13:09 | disposition home or self-care (01) | DRG 186 ==
LOC: ED 09:20 → EDHOLD 10:40 → 5E 10:40
PROVIDERS: Internal Medicine; Internal Medicine Critical Care Medicine; Nurse Practitioner Family; Registered Nurse; Student in an Organized Health Care Education/Training Program; ADMIT Internal Medicine
PROC: 0W9B30Z Drainage of Left Pleural Cavity with Drainage Device, Percutaneous Approach (ICD-10-PCS; principal; 2018-07-29)
DX: J90 Pleural effusion, not elsewhere classified (principal); J96.01 Acute respiratory failure with hypoxia; N18.6 End stage renal disease; I48.1 Persistent atrial fibrillation; E44.0 Moderate protein-calorie malnutrition; I13.2 Hypertensive heart and chronic kidney disease with heart failure and with stage 5 chronic kidney disease, or end stage renal disease; I50.32 Chronic diastolic (congestive) heart failure; J98.11 Atelectasis; R82.998 Other abnormal findings in urine; E78.2 Mixed hyperlipidemia; I48.0 Paroxysmal atrial fibrillation; K21.9 Gastro-esophageal reflux disease without esophagitis; D63.1 Anemia in chronic kidney disease; I25.10 Atherosclerotic heart disease of native coronary artery without angina pectoris; I08.1 Rheumatic disorders of both mitral and tricuspid valves; E87.5 Hyperkalemia; D70.2 Other drug-induced agranulocytosis; T50.995A Adverse effect of other drugs, medicaments and biological substances, initial encounter; Y92.89 Other specified places as the place of occurrence of the external cause; Z99.2 Dependence on renal dialysis; I25.2 Old myocardial infarction; Z87.01 Personal history of pneumonia (recurrent); Z90.49 Acquired absence of other specified parts of digestive tract; Z90.710 Acquired absence of both cervix and uterus; Z82.49 Family history of ischemic heart disease and other diseases of the circulatory system; Z84.1 Family history of disorders of kidney and ureter; Z82.3 Family history of stroke; Z84.89 Family history of other specified conditions; Z79.899 Other long term (current) drug therapy; Z95.5 Presence of coronary angioplasty implant and graft; Z68.25 Body mass index [BMI] 25.0-25.9, adult

== ENCOUNTER 2018-09-17 15:14 | Emergency (ER) | payer MEDICARE ==
[~2018-09-17] VITALS: Ht 162.5 cm; Wt 65.8 kg
--- NOTE | ~2018-09-17 | EKG ---
[place], [place] ELECTROCARDIOGRAM REPORT NAME: VIANCA MELO UNIT #: [id number] ROOM: DOCTOR: EPIPHANY DRAFT REPORT BIRTHDATE: [birth year] [facility] Test Date: 2018-09-17 Test Time: 16:54:28 Pat Name: VIANCA MELO Department: er Room: Gender: F Supervisor Forming And Tempering: Jacquelyn Higgins : 1940 Requested By: BRANDON MEDINA PA-C Order Number: [id number] Reading MD: Rashad Garibay MD Measurements Intervals [place] Rate: 106 P: [place]: QRS: 101 QRSD: 97 T: -79 QT: 358 QTc: 476 Interpretive Statements Atrial fibrillation Right axis deviation Low voltage, precordial leads Repol abnrm suggests ischemia, inferior leads Compared to ECG 07/25/2018 09:42:01 Low QRS voltage now present Possible ischemia now present Electronically Signed On 09-19-2018 13:55:14 PDT by Rashad Garibay MD CM:EKGRPT:ELECTROCARDIOGRAM REPORT [id number] BRANDON MEDINA PA-C EPIPHANY DRAFT REPORT BRANDON MEDINA PA-C
[~2018-09-17 15:14] MED LIST changes: +ATORVASTATIN CA40 M1 PO; +AURYXIA210 MG PO; +CLOPIDOGREL75 MG PO; +ELIQUIS5 M1 PO; +NATURE'S BLEND F1 MG PO; +SIMVASTATIN20 MG PO; +VITAMIN D32000 UNI1 PO
[2018-09-17 15:46] LABS: BASO % 0.5 % (0.0-1.0); EOS # 0.2 10*3/uL (0.0-0.4); EOS % 4.9 % (1.0-4.0); HEMATOCRIT 37.6 % (37.0-47.0); LYMPH # 0.5 10*3/uL (1.3-4.4); LYMPH % 12.6 % (27.0-41.0); MEAN CELL VOLUME 90.6 fl (81.0-99.0); MEAN CORPUSCULAR HGB 28.9 pg (27.0-31.0); MEAN CORPUSCULAR HGB CONC 31.9 g/dl (33.0-37.0); MEAN PLATELET VOLUME 9.4 fl (9.6-12.3); MONO # 0.4 10*3/uL (0.1-1.0); MONO % 10.3 % (3.0-9.0); NEUT # 3.1 10*3/uL (2.3-7.9); NEUT % 71.5 % (47.0-73.0); PLATELET COUNT AUTOMATED 145 10*3/uL (130-400); RED BLOOD COUNT 4.15 10*6/uL (4.10-5.10); RED CELL DISTRI WIDTH 16.8 % (0-14.5); WHITE BLOOD COUNT 4.3 10*3/uL (4.8-10.8)
[2018-09-17 16:01] LABS: ACT PARTIAL THROMBO TIME 26.4 SECONDS (20.8-31.5); INTERNATIONAL NORM RATIO 1.1 (2.0-3.5)
[2018-09-17 16:09] LABS: ALBUMIN 3.5 gm/dl (3.1-4.5); CREATININE 6.49 mg/dL (0.55-1.02); POTASSIUM 5.9 mmol/L (3.5-5.1); TOTAL PROTEIN 7.1 gm/dL (6.4-8.2)
[2018-09-17 18:49] LABS: CREATININE 6.84 mg/dL (0.55-1.02)
[2018-10-10] MEDS ORDERED: METOPROLOL SUCC50 M1 PO (16:23)
[2018-11-25] MEDS ORDERED: ROCALTROL0.25 MC2 PO (17:15)
[2018-11-25] MEDS ORDERED: PROTONIX40 MG PO (17:16)
== END 2018-09-17 19:15 | disposition home or self-care (01) ==
LOC: ED 15:14
PROVIDERS: Physician Assistant
DX: R23.3 Spontaneous ecchymoses (principal); R21 Rash and other nonspecific skin eruption; E87.5 Hyperkalemia; N18.6 End stage renal disease; Z79.899 Other long term (current) drug therapy; Z99.2 Dependence on renal dialysis

== ENCOUNTER → 2018-09-25 | Outpatient (CLI) | payer MEDICARE ==
[~2018-09-25] MED LIST changes: +COLACE100 MG PO; +METOPROLOL SUCC50 M1 PO; +NORCO 5-325 TA1 EACH PO; +PROTONIX40 MG PO; +ROCALTROL0.25 MC2 PO
== END | disposition home or self-care (01) ==
LOC: US 15:30
DX: I73.9 Peripheral vascular disease, unspecified (principal)

== ENCOUNTER 2018-11-19 20:13 | Emergency (ER) | payer MEDICARE ==
[~2018-11-19] VITALS: Ht 162.5 cm; Wt 63.5 kg
[~2018-11-19 20:13] MED LIST changes: -COLACE100 MG PO; -NORCO 5-325 TA1 EACH PO; -PROTONIX40 MG PO; -ROCALTROL0.25 MC2 PO
[2018-11-19] MEDS ORDERED: COLACE100 MG PO (21:31)
[2018-11-19] MEDS ORDERED: NORCO 5-325 TA1 EACH PO (21:31)
[2018-11-25] MEDS ORDERED: ROCALTROL0.25 MC2 PO (17:15)
[2018-11-25] MEDS ORDERED: PROTONIX40 MG PO (17:16)
== END 2018-11-19 21:47 | disposition home or self-care (01) ==
LOC: ED 20:13
DX: S32.2XXA Fracture of coccyx, initial encounter for closed fracture (principal); Z90.49 Acquired absence of other specified parts of digestive tract; Z90.710 Acquired absence of both cervix and uterus; Z98.890 Other specified postprocedural states; Z79.899 Other long term (current) drug therapy; W18.49XA Other slipping, tripping and stumbling without falling, initial encounter; Y93.89 Activity, other specified; Y92.89 Other specified places as the place of occurrence of the external cause; Y99.9 Unspecified external cause status

== ENCOUNTER 2019-03-11 00:14 | Emergency (ER) | payer MEDICARE ==
[~2019-03-11] VITALS: Ht 162.5 cm; Wt 68.0 kg
[~2019-03-11 00:14] MED LIST changes: +COLACE100 MG PO; +NORCO 5-325 TA1 EACH PO; +PROTONIX40 MG PO; +ROCALTROL0.25 MC2 PO
[2019-03-11] MEDS ORDERED: CEPHALEXIN500 M1 PO (00:45)
[2019-03-11] MEDS ORDERED: BACITRACIN-NEO0.9 GM PO (00:49)
== END 2019-03-11 01:50 | disposition home or self-care (01) ==
LOC: ED 00:14
DX: S81.802A Unspecified open wound, left lower leg, initial encounter (principal); I13.2 Hypertensive heart and chronic kidney disease with heart failure and with stage 5 chronic kidney disease, or end stage renal disease; N18.6 End stage renal disease; I50.30 Unspecified diastolic (congestive) heart failure; E78.5 Hyperlipidemia, unspecified; I48.91 Unspecified atrial fibrillation; I25.2 Old myocardial infarction; Z79.899 Other long term (current) drug therapy; Z90.710 Acquired absence of both cervix and uterus; Z90.49 Acquired absence of other specified parts of digestive tract; Z99.2 Dependence on renal dialysis; X58.XXXA Exposure to other specified factors, initial encounter; Y93.89 Activity, other specified; Y92.89 Other specified places as the place of occurrence of the external cause; Y99.8 Other external cause status

== ENCOUNTER → 2019-04-01 | Outpatient (CLI) | payer MEDICARE ==
[~2019-04-01] MED LIST changes: +BACITRACIN-NEO0.9 GM PO; +CEPHALEXIN500 M1 PO
== END | disposition home or self-care (01) ==
LOC: RESCLI 12:53
DX: S81.802D Unspecified open wound, left lower leg, subsequent encounter (principal); I12.0 Hypertensive chronic kidney disease with stage 5 chronic kidney disease or end stage renal disease; N18.6 End stage renal disease; I48.2 Chronic atrial fibrillation; X58.XXXD Exposure to other specified factors, subsequent encounter; Z79.899 Other long term (current) drug therapy

== ENCOUNTER → 2019-04-06 | Outpatient (CLI) | payer MEDICARE | END | disposition home or self-care (01) | LOC: US 14:15 | DX: S81.802D Unspecified open wound, left lower leg, subsequent encounter (principal); X58.XXXD Exposure to other specified factors, subsequent encounter ==

== ENCOUNTER 2019-04-17 21:54 | Inpatient (IN) | payer MEDICARE ==
[~2019-04-17] VITALS: Ht 162.6 cm; Wt 61.2 kg
--- NOTE | ~2019-04-17 | EKG ---
[place], [place] ELECTROCARDIOGRAM REPORT NAME: VIANCA MELO UNIT #: [id number] ROOM: [facility] DOCTOR: CRISTY DRAFT REPORT BIRTHDATE: [birth year] [facility] Test Date: 2019-04-18 Test Time: 03:25:27 Pat Name: VIANCA MELO Department: Room: [place] [id number] Gender: F Senior Investment Analyst: : 1940 Requested By: JAYA SHULTZ Order Number: [id number] Reading MD: Joesph Quiroz MD Measurements Intervals [place] Rate: 117 P: DC: QRS: 96 QRSD: 89 T: -88 QT: 350 QTc: 489 Interpretive Statements Atrial fibrillation Right axis deviation Repol abnrm, global ischemia, diffuse leads Electronically Signed On 04-18-2019 7:20:34 PDT by Joesph Quiroz MD CM:EKGRPT:ELECTROCARDIOGRAM REPORT [id number] JAYA ZARATE DRAFT REPORT JAYA SHULTZ DO
--- NOTE | ~2019-04-17 | EKG ---
[place], [place] ELECTROCARDIOGRAM REPORT NAME: VIANCA MELO UNIT #: [id number] ROOM: [facility] DOCTOR: CRISTY DRAFT REPORT BIRTHDATE: [birth year] [facility] Test Date: 2019-04-17 Test Time: 22:00:12 Pat Name: VIANCA MELO Department: er Room: [facility] Gender: F Form Drafter: : 1940 Requested By: VINNIE MURRIETA Order Number: [id number] Reading MD: Joesph Quiroz MD Measurements Intervals [place] Rate: 75 P: 46 WA: 251 QRS: 108 QRSD: 124 T: -57 QT: 440 QTc: 492 Interpretive Statements Sinus rhythm with first degree AV block RBBB and LPFB ST and T wave abnormality consider inferior ischemia Compared to ECG 11/24/2018 21:16:32 First degree AV block now present Left posterior fascicular block now present Right bundle-branch block now present Atrial fibrillation no longer present Electronically Signed On 04-18-2019 7:17:32 PDT by Joesph Quiroz MD CM:EKGRPT:ELECTROCARDIOGRAM REPORT [id number] VINNIE MURRIETA MD EPIPHANY DRAFT REPORT VINNIE MURRIETA MD
[2019-04-17 22:08] VITALS: BP 184/71
[2019-04-17 22:52] LABS: BASO % 0.6 % (0.0-1.0); EOS # 0.2 10*3/uL (0.0-0.4); HEMATOCRIT 31.9 % (37.0-47.0); HEMOGLOBIN 10.4 g/dl (12.0-16.0); LYMPH # 0.4 10*3/uL (1.3-4.4); MEAN CELL VOLUME 90.6 fl (81.0-99.0); MEAN CORPUSCULAR HGB 29.5 pg (27.0-31.0); MEAN CORPUSCULAR HGB CONC 32.6 g/dl (33.0-37.0); MEAN PLATELET VOLUME 9.9 fl (9.6-12.3); MONO # 0.4 10*3/uL (0.1-1.0); PLATELET COUNT AUTOMATED 153 10*3/uL (130-400); RED BLOOD COUNT 3.52 10*6/uL (4.10-5.10)
[2019-04-17 23:03] LABS: ACT PARTIAL THROMBO TIME 25.6 SECONDS (20.0-32.1); INTERNATIONAL NORM RATIO 1.1 (2.0-3.5)
[2019-04-17 23:11] LABS: ALBUMIN 3.7 gm/dl (3.1-4.5); CREATININE 11.2 mg/dL (0.55-1.02); TOTAL PROTEIN 7.7 gm/dL (6.4-8.2)
[2019-04-17 23:12] LABS: TROPONIN I 0.045 ng/ml (<0.045)
[2019-04-17 23:15] LABS: POTASSIUM 7.3 mmol/L (3.5-5.1)
[2019-04-17 23:42] VITALS: BP 120/60
[2019-04-18 00:30] VITALS: BP 180/73
--- NOTE | 2019-04-18 00:30 | NUR ---
A 79, admitted to ICCU, under the services of JANIE Ibanez DO with a diagnosis of TRAUMATIC WOUND OF THE LEG WITH INFECTION. Chief complaint is SOB. Patient arrived via stretcher from ER. Monitor applied. Initial assessment completed. Vital signs taken and recorded. JANIE IBANEZ DO notified of admission to the unit. Orders received. See assessment for past medical history, medications and allergies. Patient and/or family oriented to unit. [facility] ICCU visitation policy reviewed. Clothing/patient valuable form completed. DAVID HARTMAN
--- NOTE | 2019-04-18 00:45 | NUR ---
DR SOMMER MADE AWARE OF ELEVATED TROPONIN, NO NEW ORDERS AT THIS TIME
--- NOTE | 2019-04-18 01:28 | NUR ---
WOUND PHOTO TAKEN
--- NOTE | 2019-04-18 01:55 | NUR ---
ORDER OBATINED FOR CATHFLO, PATIENTS DIALYSIS PORT IS NO LONGER FUNCTIONING AND DIALYSIS NURSE RECOMMENDED.
--- NOTE | 2019-04-18 02:05 | NUR ---
DIALYSIS NURSE CALLED AND SPOKE TO DR ROQUE REGARDING DIALYSIS PORTS NOT WORKING AND CATHFLO BEING ORDERED.
--- NOTE | 2019-04-18 02:57 | NUR ---
ATTEMPT MADE TO REACH REGARDING CARE
--- NOTE | 2019-04-18 02:57 | NUR ---
CONSULT CALLED TO CARDIOLOGY AT THIS TIME. AWAITING CALL BACK
--- NOTE | 2019-04-18 03:30 | NUR ---
RN FINALLY ABLE TO REACH FAMILY MEMBER BY CALLING CONTACTS PATIENT STATED TO TRY FROM HER PHONE, CONTACT IS CALLED AISHA BOGGS AND PATIENT STATES THAT IT HER GRANDDAUGHTER. DR SHULTZ TALKED TO GRANDDAUGHTER AND MADE AWARE OF CHANGE IN CONDITION.
[2019-04-18 04:00] VITALS: BP 143/103
--- NOTE | 2019-04-18 04:30 | NUR ---
PATIENT MEDICATED WITH MORPHINE PER DRS ORDERS. PATIENT C/O PAIN ALL OVER AFTER DIALYSIS. RN WILL CONTINUE TO MONITOR
[2019-04-18 04:33] VITALS: BP 130/73
--- NOTE | 2019-04-18 04:38 | NUR ---
DIALYSIS FINISHED AT THIS TIME, 2.2KG OFF PATIENT. BLOOD PRESSURE MUCH MORE STABLE AT THIS TIME.
[2019-04-18 05:27] VITALS: BP 121/78
--- NOTE | 2019-04-18 06:34 | NUR ---
PATIENT OFF THE FLOOR WITH [facility] WORK[facility] AT THIS TIME. RN TRAVELLING WITH AMBULANCE GIVEN REPORT ON PATIENT. ALL BELONGINGS SENT WITH PATIENT
--- NOTE | 2019-04-18 06:48 | NUR ---
REPORT CALLED TO JESSICA TOBIN [facility]. CALL BACK NUMBER PROVIDED.
== END 2019-04-18 06:48 | disposition other institution (70) | DRG 280 ==
LOC: ED 21:54 → EDHOLD 23:28 → ICCU 23:28
PROVIDERS: Emergency Medicine Emergency Medical Services; ADMIT Family Medicine
DX: I21.A1 Myocardial infarction type 2 (principal); N18.6 End stage renal disease; I13.2 Hypertensive heart and chronic kidney disease with heart failure and with stage 5 chronic kidney disease, or end stage renal disease; I50.32 Chronic diastolic (congestive) heart failure; I45.2 Bifascicular block; E87.5 Hyperkalemia; L08.9 Local infection of the skin and subcutaneous tissue, unspecified; S81.802A Unspecified open wound, left lower leg, initial encounter; E83.41 Hypermagnesemia; E78.5 Hyperlipidemia, unspecified; D63.1 Anemia in chronic kidney disease; K44.9 Diaphragmatic hernia without obstruction or gangrene; R16.1 Splenomegaly, not elsewhere classified; K57.90 Diverticulosis of intestine, part unspecified, without perforation or abscess without bleeding; I48.91 Unspecified atrial fibrillation; D64.9 Anemia, unspecified; D72.810 Lymphocytopenia; X58.XXXA Exposure to other specified factors, initial encounter; Y93.89 Activity, other specified; Y92.89 Other specified places as the place of occurrence of the external cause; Z99.2 Dependence on renal dialysis; Y99.8 Other external cause status; I25.2 Old myocardial infarction; Z90.49 Acquired absence of other specified parts of digestive tract; Z90.710 Acquired absence of both cervix and uterus; Z82.49 Family history of ischemic heart disease and other diseases of the circulatory system; Z84.1 Family history of disorders of kidney and ureter; Z82.3 Family history of stroke; Z79.899 Other long term (current) drug therapy

== ENCOUNTER → 2019-05-06 | Outpatient (CLI) | payer MEDICARE | END | disposition home or self-care (01) | LOC: RESCLI 01:16 | DX: S81.802D Unspecified open wound, left lower leg, subsequent encounter (principal); I12.0 Hypertensive chronic kidney disease with stage 5 chronic kidney disease or end stage renal disease; N18.6 End stage renal disease; I48.91 Unspecified atrial fibrillation; E78.00 Pure hypercholesterolemia, unspecified; Z79.899 Other long term (current) drug therapy; Z88.8 Allergy status to other drugs, medicaments and biological substances; X58.XXXD Exposure to other specified factors, subsequent encounter ==

== ENCOUNTER 2019-06-25 07:30 | Inpatient (IN) | payer MEDICARE ==
[2019-06-25] VITALS (7 sets, daily range): BP systolic 128–205; BP diastolic 44–85
[~2019-06-25] VITALS: Ht 162.5 cm; Wt 61.4 kg
[2019-06-25 07:50] LABS: BASO % 0.8 % (0.0-1.0); EOS # 0.4 10*3/uL (0.0-0.4); EOS % 8.3 % (1.0-4.0); HEMOGLOBIN 10.9 g/dl (12.0-16.0); LYMPH # 0.5 10*3/uL (1.3-4.4); LYMPH % 9.7 % (27.0-41.0); MEAN CELL VOLUME 89.9 fl (81.0-99.0); MEAN CORPUSCULAR HGB 29.7 pg (27.0-31.0); MEAN PLATELET VOLUME 10.1 fl (9.6-12.3); MONO # 0.6 10*3/uL (0.1-1.0); MONO % 12.4 % (3.0-9.0); NEUT # 3.5 10*3/uL (2.3-7.9); PLATELET COUNT AUTOMATED 143 10*3/uL (130-400); RED BLOOD COUNT 3.67 10*6/uL (4.10-5.10); RED CELL DISTRI WIDTH 13.5 % (0-14.5); WHITE BLOOD COUNT 5.1 10*3/uL (4.8-10.8)
[2019-06-25 08:00] LABS: ACT PARTIAL THROMBO TIME 69.5 SECONDS (20.0-32.1)
[2019-06-25 08:07] LABS: ALBUMIN 3.4 gm/dl (3.1-4.5); CREATININE 4.14 mg/dL (0.55-1.02); POTASSIUM 4.1 mmol/L (3.5-5.1); TOTAL PROTEIN 7.1 gm/dL (6.4-8.2); TROPONIN I 0.038 ng/ml (<0.045)
--- NOTE | 2019-06-25 08:18 | NUR ---
PT IS RESTING,REMAINS AWAKE AND ALERT. NO DISTRESS NOTED. WAITING FOR TEST RESULTS. JUAN OLGUIN
--- NOTE | 2019-06-25 09:16 | NUR ---
PT REFUSES TO LEFT ME CHECK HER DEPEND BRIEF,STATES IT IS DRY, ALSO DENIES ANY TYPES OF SORES/WOUNDS ON HER BUTTOCKS. JUAN OLGUIN
[2019-06-25] MEDS ORDERED: ASPIRIN CHEWABL81 MG PO (10:55)
--- NOTE | 2019-06-25 12:31 | NUR ---
PATIENT ADMITTED FOR ER VIA CART TODAY AT 0945.SHE IS ADMITTED DUE TO SYNCOPAL EPISODE WHICH TOOK PLACE PRIOR TO HER DIALYSIS TX. SHE IS PLEASANT AND COOPERATIVE, VITAL SIGNS WNL. MEDS ARE VERIFIED, PHYSICIANS NOTIFIED.
--- NOTE | 2019-06-25 12:33 | NUR ---
PT HAS R IGHT SUBCLAVIAN TESSIO PORT FOR DIALYSIS.
--- NOTE | 2019-06-25 15:02 | NUR ---
SPOKE TO RESIDENT OF DR. BROWN TO REPORT SECOND TROPONIN CALLED BY LAB WHICH IS .[phone]. AWAITING FURTHER INSTRUCTIONS.
--- NOTE | 2019-06-25 21:00 | NUR ---
RESTING IN BED WITH NO ACUTE DISTRESS NOTED. RESPIRATIONS EASY. LUNGS DIMINISHED, CLEAR. PULSE OX 96% RA. TESIO NOTED TO RIGHT CHEST. CALL LIGHT WITHIN REACH. NO VOICED COMPLAINTS. BED ALARM MAINTAINED FOR SAFETY
--- NOTE | 2019-06-25 21:06 | NUR ---
24 HR chart check completed.
--- NOTE | 2019-06-25 22:30 | NUR ---
MEDICATED WITH RESTORIL TO ASSIST WITH SLEEP. WILL MONITOR
--- NOTE | 2019-06-25 22:58 | NUR ---
REQUESTED AND RECEIVED TYLENOL PER PRN ORDER FOR COMPLAINTS OF HEADACHE RATING A 6. CALL LIGHT WITHIN REACH. WILL MONITOR
[2019-06-26] VITALS: BP 156/52
--- NOTE | 2019-06-26 | NUR ---
EARLIER MEDS APPEAR EFFECTIVE. SLEEPING. RESPIRATIONS EASY. VSS. CALL LIGHT WITHIN REACH. BED ALARM MAINTAINED
[2019-06-26] MEDS ORDERED: METOPROLOL TART50 M1 PO (01:41)
--- NOTE | 2019-06-26 02:30 | NUR ---
SLEEPING. BED ALARM MAINTAINED
--- NOTE | 2019-06-26 06:00 | NUR ---
SLEPT THROUGHOUT NIGHT WITH NO DISTRESS NOTED. RESPIRATIONS EASY. CALL LIGHT WITHIN REACH. NO VOICED COMPLAINTS THIS SHIFT
--- NOTE | 2019-06-26 07:57 | NUR ---
NOTIFIED DR SOMMER OF PT MANUAL BP 186/60.
[2019-06-26 08:00] VITALS: BP 186/60; BP 189/82
--- NOTE | 2019-06-26 08:00 | NUR ---
PT HAD EKG CHANGES. EKG ORDERED. NOTIFIED DR SOMMER,PER HIS ORDER PT MEDICATED WITH LISINOPRIL 5 MG AND IMDUR SA 120 MG. PT AT THIS TIME IS REFUSING DIALYSIS. PT STATES "THIS IS NOT MY DAY". NOTIFIED REGIONAL CONSTRUCTION MANAGER . CALL OUT TO DR ROQUE VIA HD RN. EKG COMPLETED WITHOUT DIFFICULTY. PT DENIES SOB,DIZZINESS, CHEST PAIN. PT STATES "I JUST WANT TO GO".
--- NOTE | 2019-06-26 09:00 | NUR ---
Curriculum Developer in to talk to patient. Patient states lives at home with and other family members. There are few steps in the home. Physician: [facility]acy: [facility] Home health services: none Patient's level of ADLs: INDEPENDENT Patient has working utilities: all working DME: walker, nebulizer Follow-up physician's appointment after d/c: will be made by hospitalist nurse director upon discharge Does patient want to access PORTAL?: no Discharge plan discussed with patient, she lives at home with hsuband and other family members she states she is independent in adls and ambulation, has a walker to use if needed, she has dialysis saturday, and saturday, she states she will return home when medically stable and denies any home needs, she will be discharged to home today after cardiology visits. DIYA HOFFMAN
--- NOTE | 2019-06-26 09:36 | NUR ---
DR HALL NOTIFIED OF NEW CONSULT.
--- NOTE | 2019-06-26 09:56 | NUR ---
DR HALL ROUNDED AND SEEN PT.ORDERS RECIEVED.
[2019-06-26] MEDS ORDERED: METOPROLOL SUCC50 M1 PO (10:20)
[2019-06-26] MEDS ORDERED: AMLODIPINE BESY10 MG PO (10:20)
--- NOTE | 2019-06-26 11:43 | NUR ---
Discharge instructions reviewed with patient/family. Patient receptive and verbalizes understanding. Follow-up care arranged. Written instructions given to patient/family. KAIT HOBSON
== END 2019-06-26 11:48 | disposition home or self-care (01) | DRG 312 ==
LOC: ED 07:30 → EDHOLD 09:07 → 4E 09:07
PROVIDERS: Emergency Medicine; ADMIT Family Medicine
DX: R55 Syncope and collapse (principal); N18.6 End stage renal disease; I16.1 Hypertensive emergency; I50.32 Chronic diastolic (congestive) heart failure; E44.0 Moderate protein-calorie malnutrition; I13.0 Hypertensive heart and chronic kidney disease with heart failure and stage 1 through stage 4 chronic kidney disease, or unspecified chronic kidney disease; D63.1 Anemia in chronic kidney disease; I48.91 Unspecified atrial fibrillation; R73.9 Hyperglycemia, unspecified; E78.5 Hyperlipidemia, unspecified; E83.41 Hypermagnesemia; R74.8 Abnormal levels of other serum enzymes; D64.9 Anemia, unspecified; Z68.23 Body mass index [BMI] 23.0-23.9, adult; Z79.82 Long term (current) use of aspirin; Z79.899 Other long term (current) drug therapy; I25.2 Old myocardial infarction; Z99.2 Dependence on renal dialysis; Z90.49 Acquired absence of other specified parts of digestive tract; Z90.710 Acquired absence of both cervix and uterus; Z95.5 Presence of coronary angioplasty implant and graft; Z82.49 Family history of ischemic heart disease and other diseases of the circulatory system; Z84.1 Family history of disorders of kidney and ureter; I25.10 Atherosclerotic heart disease of native coronary artery without angina pectoris

== ENCOUNTER → 2019-07-14 | Outpatient (CLI) | payer MEDICARE ==
[~2019-07-14] MED LIST changes: +AMLODIPINE BESY10 MG PO; +ASPIRIN CHEWABL81 MG PO; +METOPROLOL TART50 M1 PO
== END | disposition home or self-care (01) ==
LOC: RESCLI 02:18
DX: Z09 Encounter for follow-up examination after completed treatment for conditions other than malignant neoplasm (principal); I13.2 Hypertensive heart and chronic kidney disease with heart failure and with stage 5 chronic kidney disease, or end stage renal disease; I50.32 Chronic diastolic (congestive) heart failure; N18.6 End stage renal disease; E78.5 Hyperlipidemia, unspecified; I48.91 Unspecified atrial fibrillation; I25.10 Atherosclerotic heart disease of native coronary artery without angina pectoris; R55 Syncope and collapse; Z99.2 Dependence on renal dialysis; Z79.899 Other long term (current) drug therapy; Z90.49 Acquired absence of other specified parts of digestive tract; Z90.710 Acquired absence of both cervix and uterus

== ENCOUNTER 2019-09-04 08:56 | Emergency (ER) | payer MEDICARE ==
[2019-09-04 09:48] LABS: EOS # 0.1 10*3/uL (0.0-0.4); EOS % 2.8 % (1.0-4.0); HEMATOCRIT 33.6 % (37.0-47.0); HEMOGLOBIN 11.1 g/dl (12.0-16.0); LYMPH # 0.5 10*3/uL (1.3-4.4); LYMPH % 11.3 % (27.0-41.0); MEAN CELL VOLUME 91.6 fl (81.0-99.0); MEAN CORPUSCULAR HGB 30.2 pg (27.0-31.0); MEAN PLATELET VOLUME 10.4 fl (9.6-12.3); MONO # 0.3 10*3/uL (0.1-1.0); MONO % 8.5 % (3.0-9.0); NEUT # 3.1 10*3/uL (2.3-7.9); NEUT % 76.1 % (47.0-73.0); PLATELET COUNT AUTOMATED 110 10*3/uL (130-400); RED BLOOD COUNT 3.67 10*6/uL (4.10-5.10)
[2019-09-04 10:06] LABS: ALBUMIN 3.6 gm/dl (3.1-4.5); CREATININE 7.23 mg/dL (0.55-1.02); POTASSIUM 4.7 mmol/L (3.5-5.1)
[2019-09-04 10:08] LABS: TROPONIN I 0.062 ng/ml (<0.045)
== END 2019-09-04 11:57 | disposition home or self-care (01) ==
LOC: ED 08:56
PROVIDERS: Emergency Medicine
DX: I48.20 Chronic atrial fibrillation, unspecified (principal); E78.00 Pure hypercholesterolemia, unspecified; I25.2 Old myocardial infarction; I25.10 Atherosclerotic heart disease of native coronary artery without angina pectoris; I13.2 Hypertensive heart and chronic kidney disease with heart failure and with stage 5 chronic kidney disease, or end stage renal disease; N18.6 End stage renal disease; I50.30 Unspecified diastolic (congestive) heart failure; Z79.82 Long term (current) use of aspirin; Z99.2 Dependence on renal dialysis; Z79.899 Other long term (current) drug therapy; Z79.2 Long term (current) use of antibiotics; Z90.710 Acquired absence of both cervix and uterus; Z90.49 Acquired absence of other specified parts of digestive tract; Z98.61 Coronary angioplasty status

== ENCOUNTER 2019-10-01 09:20 | Inpatient (IN) | payer MEDICARE ==
[2019-10-01] VITALS (7 sets, daily range): BP systolic 125–156; BP diastolic 41–95
[~2019-10-01] VITALS: Ht 162.6 cm; Wt 59.1 kg
[2019-10-01 10:07] LABS: EOS # 0.2 10*3/uL (0.0-0.4); EOS % 3.6 % (1.0-4.0); HEMATOCRIT 31.7 % (37.0-47.0); HEMOGLOBIN 10.3 g/dl (12.0-16.0); LYMPH # 0.4 10*3/uL (1.3-4.4); LYMPH % 8.9 % (27.0-41.0); MEAN CELL VOLUME 92.2 fl (81.0-99.0); MEAN CORPUSCULAR HGB 29.9 pg (27.0-31.0); MEAN CORPUSCULAR HGB CONC 32.5 g/dl (33.0-37.0); MEAN PLATELET VOLUME 10.6 fl (9.6-12.3); MONO # 0.5 10*3/uL (0.1-1.0); MONO % 10.9 % (3.0-9.0); NEUT # 3.1 10*3/uL (2.3-7.9); NEUT % 75.1 % (47.0-73.0); PLATELET COUNT AUTOMATED 107 10*3/uL (130-400); RED BLOOD COUNT 3.44 10*6/uL (4.10-5.10); RED CELL DISTRI WIDTH 14.6 % (0-14.5); WHITE BLOOD COUNT 4.1 10*3/uL (4.8-10.8)
[2019-10-01 10:15] LABS: ACT PARTIAL THROMBO TIME 34.5 SECONDS (20.0-32.1)
[2019-10-01 10:25] LABS: ALBUMIN 3.1 gm/dl (3.1-4.5); CREATININE 3.75 mg/dL (0.55-1.02); PHOSPHOROUS 3.3 mg/dL (2.5-4.9); POTASSIUM 3.7 mmol/L (3.5-5.1); TOTAL PROTEIN 6.5 gm/dL (6.4-8.2)
[2019-10-01 10:32] LABS: TROPONIN I 0.078 ng/ml (<0.045)
[2019-10-01 10:58] LABS: BILIRUBIN NEGATIVE (NEGATIVE); BLOOD 2+ (NEGATIVE); CLARITY CLEAR (CLEAR); COLOR YELLOW (YELLOW); GLUCOSE NEGATIVE (NEGATIVE); KETONE NEGATIVE (NEGATIVE); LEUKO ESTERASE NEGATIVE (NEGATIVE); NITRITE NEGATIVE (NEGATIVE); SPECIFIC GRAVITY 1.005 (1.005-1.030); UROBILINOGEN 0.2 E.U./dl (0.2-1.0)
[2019-10-01 11:02] LABS: MUCOUS 1+
[2019-10-01] MEDS ORDERED: Percocet 325 MG1 TAB PO (15:01)
[2019-10-01] MEDS ORDERED: LOPRESSOR50 M1 PO (15:02)
[2019-10-01] MEDS ORDERED: LIPITOR40 MG PO (15:02)
[2019-10-01] MEDS ORDERED: Clopidogrel75 MG PO (15:02)
[2019-10-01] MEDS ORDERED: SENNA8.6 MG PO (15:03)
[2019-10-01] MEDS ORDERED: VITAMIN C WITH500 M1 PO (15:03)
[2019-10-01 16:34] LABS: ABG BASE EXCESS 5.1 mmol/L (-2.0-2.0); ARTERIAL BLOOD GAS PH 7.518 (7.35-7.45)
[2019-10-02] VITALS (9 sets, daily range): BP systolic 120–149; BP diastolic 45–86
[2019-10-02 06:30] LABS: BASO % 0.4 % (0.0-1.0); EOS # 0.1 10*3/uL (0.0-0.4); EOS % 2.8 % (1.0-4.0); HEMATOCRIT 26.2 % (37.0-47.0); HEMOGLOBIN 8.3 g/dl (12.0-16.0); LYMPH # 0.4 10*3/uL (1.3-4.4); LYMPH % 7.9 % (27.0-41.0); MEAN CELL VOLUME 93.2 fl (81.0-99.0); MEAN CORPUSCULAR HGB 29.5 pg (27.0-31.0); MEAN CORPUSCULAR HGB CONC 31.7 g/dl (33.0-37.0); MONO # 0.6 10*3/uL (0.1-1.0); NEUT # 3.5 10*3/uL (2.3-7.9); NEUT % 76.5 % (47.0-73.0); PLATELET COUNT AUTOMATED 107 10*3/uL (130-400); RED BLOOD COUNT 2.81 10*6/uL (4.10-5.10); RED CELL DISTRI WIDTH 14.7 % (0-14.5); WHITE BLOOD COUNT 4.6 10*3/uL (4.8-10.8)
[2019-10-02 06:58] LABS: ALBUMIN 2.8 gm/dl (3.1-4.5); CREATININE 5.76 mg/dL (0.55-1.02); FREE T4 1.17 ng/dl (0.76-1.46); PHOSPHOROUS 5.4 mg/dL (2.5-4.9); TOTAL PROTEIN 6.4 gm/dL (6.4-8.2)
[2019-10-02 07:03] LABS: THYROID STIM HORMONE (HS) 4.98 uIU/ml (0.358-4.75)
[2019-10-02 07:04] LABS: POTASSIUM 4.9 mmol/L (3.5-5.1)
[2019-10-03] VITALS: BP 100/55
[2019-10-03 06:58] LABS: BASO % 0.9 % (0.0-1.0); EOS # 0.3 10*3/uL (0.0-0.4); EOS % 6.1 % (1.0-4.0); HEMATOCRIT 29.4 % (37.0-47.0); LYMPH # 0.6 10*3/uL (1.3-4.4); LYMPH % 12.3 % (27.0-41.0); MEAN CELL VOLUME 95.8 fl (81.0-99.0); MEAN CORPUSCULAR HGB 29.3 pg (27.0-31.0); MEAN CORPUSCULAR HGB CONC 30.6 g/dl (33.0-37.0); MEAN PLATELET VOLUME 10.7 fl (9.6-12.3); MONO # 0.5 10*3/uL (0.1-1.0); MONO % 11.4 % (3.0-9.0); NEUT # 3.1 10*3/uL (2.3-7.9); NEUT % 68.9 % (47.0-73.0); PLATELET COUNT AUTOMATED 122 10*3/uL (130-400); RED BLOOD COUNT 3.07 10*6/uL (4.10-5.10); RED CELL DISTRI WIDTH 14.8 % (0-14.5); WHITE BLOOD COUNT 4.5 10*3/uL (4.8-10.8)
[2019-10-03 07:22] LABS: POTASSIUM 5.5 mmol/L (3.5-5.1)
[2019-10-03 07:33] LABS: CREATININE 7.34 mg/dL (0.55-1.02); PHOSPHOROUS 7.2 mg/dL (2.5-4.9)
[2019-10-03 08:00] VITALS: BP 145/54
[2019-10-03 12:00] VITALS: BP 135/55
[2019-10-03 16:00] VITALS: BP 121/54
[2019-10-03 16:04] LABS: HEMOGLOBIN 8.9 g/dl (12.0-16.0)
[2019-10-03 20:00] VITALS: BP 102/83
[2019-10-04] VITALS: BP 146/70
[2019-10-04 06:55] LABS: CREATININE 4.83 mg/dL (0.55-1.02)
[2019-10-04 07:00] LABS: BASO # 0.1 10*3/uL (0.0-0.1); BASO % 1.5 % (0.0-1.0); EOS # 0.2 10*3/uL (0.0-0.4); EOS % 4.6 % (1.0-4.0); HEMATOCRIT 29.1 % (37.0-47.0); HEMOGLOBIN 9.3 g/dl (12.0-16.0); LYMPH # 0.7 10*3/uL (1.3-4.4); LYMPH % 14.3 % (27.0-41.0); MEAN CELL VOLUME 94.2 fl (81.0-99.0); MEAN CORPUSCULAR HGB 30.1 pg (27.0-31.0); MONO # 0.6 10*3/uL (0.1-1.0); MONO % 11.9 % (3.0-9.0); NEUT # 3.1 10*3/uL (2.3-7.9); NEUT % 67.3 % (47.0-73.0); RED BLOOD COUNT 3.09 10*6/uL (4.10-5.10); RED CELL DISTRI WIDTH 14.5 % (0-14.5); WHITE BLOOD COUNT 4.6 10*3/uL (4.8-10.8)
[2019-10-04 07:02] LABS: POTASSIUM 4.3 mmol/L (3.5-5.1)
[2019-10-04 07:03] LABS: PLATELET COUNT AUTOMATED 167 10*3/uL (130-400)
[2019-10-04 08:00] VITALS: BP 140/68
[2019-10-04 12:00] VITALS: BP 138/52
[2019-10-04 16:00] VITALS: BP 135/61
[2019-10-04 20:00] VITALS: BP 146/62
[2019-10-05] VITALS: BP 153/70
[2019-10-05 06:36] LABS: CREATININE 6.7 mg/dL (0.55-1.02); POTASSIUM 4.9 mmol/L (3.5-5.1)
[2019-10-05 08:00] VITALS: BP 132/74; BP 142/66
[2019-10-05 08:05] LABS: BASO # 0.1 10*3/uL (0.0-0.1); BASO % 1.4 % (0.0-1.0); EOS # 0.2 10*3/uL (0.0-0.4); HEMATOCRIT 31.5 % (37.0-47.0); HEMOGLOBIN 10.1 g/dl (12.0-16.0); LYMPH # 0.5 10*3/uL (1.3-4.4); LYMPH % 14.4 % (27.0-41.0); MEAN CELL VOLUME 92.9 fl (81.0-99.0); MEAN CORPUSCULAR HGB 29.8 pg (27.0-31.0); MEAN CORPUSCULAR HGB CONC 32.1 g/dl (33.0-37.0); MEAN PLATELET VOLUME 11.3 fl (9.6-12.3); MONO # 0.4 10*3/uL (0.1-1.0); MONO % 10.9 % (3.0-9.0); NEUT # 2.5 10*3/uL (2.3-7.9); PLATELET COUNT AUTOMATED 171 10*3/uL (130-400); RED BLOOD COUNT 3.39 10*6/uL (4.10-5.10); RED CELL DISTRI WIDTH 14.6 % (0-14.5); WHITE BLOOD COUNT 3.7 10*3/uL (4.8-10.8)
[2019-10-05 16:00] VITALS: BP 142/55
[2019-10-05 20:00] VITALS: BP 156/66
[2019-10-06] VITALS: BP 147/45
[2019-10-06 08:36] LABS: EOS # 0.3 10*3/uL (0.0-0.4); EOS % 6.1 % (1.0-4.0); HEMATOCRIT 27.1 % (37.0-47.0); HEMOGLOBIN 9.1 g/dl (12.0-16.0); LYMPH # 0.5 10*3/uL (1.3-4.4); LYMPH % 12.2 % (27.0-41.0); MEAN CELL VOLUME 91.2 fl (81.0-99.0); MEAN CORPUSCULAR HGB 30.6 pg (27.0-31.0); MEAN CORPUSCULAR HGB CONC 33.6 g/dl (33.0-37.0); MEAN PLATELET VOLUME 10.8 fl (9.6-12.3); MONO # 0.4 10*3/uL (0.1-1.0); MONO % 10.7 % (3.0-9.0); NEUT # 2.9 10*3/uL (2.3-7.9); NEUT % 69.5 % (47.0-73.0); PLATELET COUNT AUTOMATED 184 10*3/uL (130-400); RED BLOOD COUNT 2.97 10*6/uL (4.10-5.10); RED CELL DISTRI WIDTH 14.6 % (0-14.5); WHITE BLOOD COUNT 4.1 10*3/uL (4.8-10.8)
[2019-10-06 08:53] LABS: ALBUMIN 2.9 gm/dl (3.1-4.5); CREATININE 8.63 mg/dL (0.55-1.02); PHOSPHOROUS 6.6 mg/dL (2.5-4.9); POTASSIUM 4.6 mmol/L (3.5-5.1)
[2019-10-06 12:00] VITALS: BP 121/64
[2019-10-06] MEDS ORDERED: MIRTAZAPINE15 M2 PO (13:44)
== END 2019-10-06 16:12 | disposition home or self-care (01) | DRG 70 ==
LOC: ED 09:20 → 4E 12:42 → EDHOLD 12:42 → 4E 13:09
PROVIDERS: Internal Medicine; Internal Medicine Critical Care Medicine; Internal Medicine Nephrology; Nurse Practitioner Family; ADMIT Family Medicine
PROC: 5A1D70Z Performance of Urinary Filtration, Intermittent, Less than 6 Hours Per Day (ICD-10-PCS; principal; 2019-10-03)
PROC: 5A1D70Z Performance of Urinary Filtration, Intermittent, Less than 6 Hours Per Day (ICD-10-PCS; 2019-10-06)
DX: G93.41 Metabolic encephalopathy (principal); N18.6 End stage renal disease; I50.30 Unspecified diastolic (congestive) heart failure; E87.3 Alkalosis; D61.818 Other pancytopenia; I13.2 Hypertensive heart and chronic kidney disease with heart failure and with stage 5 chronic kidney disease, or end stage renal disease; E44.0 Moderate protein-calorie malnutrition; R09.02 Hypoxemia; Z53.29 Procedure and treatment not carried out because of patient's decision for other reasons; I48.91 Unspecified atrial fibrillation; E78.5 Hyperlipidemia, unspecified; E83.39 Other disorders of phosphorus metabolism; E87.5 Hyperkalemia; E83.41 Hypermagnesemia; I25.10 Atherosclerotic heart disease of native coronary artery without angina pectoris; S40.021A Contusion of right upper arm, initial encounter; X58.XXXA Exposure to other specified factors, initial encounter; F39 Unspecified mood [affective] disorder; G30.9 Alzheimer's disease, unspecified; F02.80 Dementia in other diseases classified elsewhere, unspecified severity, without behavioral disturbance, psychotic disturbance, mood disturbance, and anxiety; Y93.89 Activity, other specified; Y92.89 Other specified places as the place of occurrence of the external cause; Y99.8 Other external cause status; Z79.82 Long term (current) use of aspirin; Z79.899 Other long term (current) drug therapy; Z90.49 Acquired absence of other specified parts of digestive tract; Z90.710 Acquired absence of both cervix and uterus; Z95.5 Presence of coronary angioplasty implant and graft; Z82.49 Family history of ischemic heart disease and other diseases of the circulatory system; Z84.1 Family history of disorders of kidney and ureter; Z83.2 Family history of diseases of the blood and blood-forming organs and certain disorders involving the immune mechanism; I25.2 Old myocardial infarction; Z99.2 Dependence on renal dialysis; Z68.23 Body mass index [BMI] 23.0-23.9, adult

== ENCOUNTER → 2020-03-17 | Outpatient (CLI) | payer MEDICARE ==
[~2020-03-17] MED LIST changes: +Clopidogrel75 MG PO; +LIPITOR40 MG PO; +LOPRESSOR50 M1 PO; +MIRTAZAPINE15 M2 PO; +Percocet 325 MG1 TAB PO; +SENNA8.6 MG PO; +VITAMIN C WITH500 M1 PO
== END | disposition home or self-care (01) ==
LOC: RESCLI 00:45
PROVIDERS: ATTEND Internal Medicine
DX: I12.0 Hypertensive chronic kidney disease with stage 5 chronic kidney disease or end stage renal disease (principal); N18.6 End stage renal disease; I48.91 Unspecified atrial fibrillation; F32.9 Major depressive disorder, single episode, unspecified; E78.5 Hyperlipidemia, unspecified; I25.10 Atherosclerotic heart disease of native coronary artery without angina pectoris; R11.10 Vomiting, unspecified; S90.812A Abrasion, left foot, initial encounter; Z79.899 Other long term (current) drug therapy; Z79.82 Long term (current) use of aspirin; Z90.49 Acquired absence of other specified parts of digestive tract; Z95.818 Presence of other cardiac implants and grafts; Z90.710 Acquired absence of both cervix and uterus; Z90.721 Acquired absence of ovaries, unilateral; Z98.890 Other specified postprocedural states; X58.XXXA Exposure to other specified factors, initial encounter; Y93.89 Activity, other specified; Y92.89 Other specified places as the place of occurrence of the external cause; Y99.8 Other external cause status

== ENCOUNTER 2020-04-21 08:59 | Emergency (ER) | payer MEDICARE ==
[~2020-04-21] VITALS: Ht 165.1 cm; Wt 56.6 kg
[2020-04-21 09:45] LABS: BASO % 1.3 % (0.0-1.0); EOS # 0.1 10*3/uL (0.0-0.4); EOS % 5.5 % (1.0-4.0); HEMATOCRIT 34.5 % (37.0-47.0); LYMPH # 0.5 10*3/uL (1.3-4.4); LYMPH % 19.1 % (27.0-41.0); MEAN CELL VOLUME 91.5 fl (81.0-99.0); MEAN CORPUSCULAR HGB 28.9 pg (27.0-31.0); MEAN CORPUSCULAR HGB CONC 31.6 g/dl (33.0-37.0); MEAN PLATELET VOLUME 10.6 fl (9.6-12.3); MONO # 0.3 10*3/uL (0.1-1.0); MONO % 11.9 % (3.0-9.0); NEUT # 1.5 10*3/uL (2.3-7.9); NEUT % 62.2 % (47.0-73.0); PLATELET COUNT AUTOMATED 106 10*3/uL (130-400); RED BLOOD COUNT 3.77 10*6/uL (4.10-5.10); RED CELL DISTRI WIDTH 19.6 % (0-14.5); WHITE BLOOD COUNT 2.4 10*3/uL (4.8-10.8)
[2020-04-21 10:02] LABS: ALBUMIN 3.2 gm/dl (3.1-4.5); CREATININE 3.71 mg/dL (0.55-1.02); POTASSIUM 4.3 mmol/L (3.5-5.1); TOTAL PROTEIN 6.3 gm/dL (6.4-8.2)
[2020-04-21 10:12] LABS: ACT PARTIAL THROMBO TIME 25.1 SECONDS (20.0-32.1); INTERNATIONAL NORM RATIO 1.2 (2.0-3.5)
[2020-04-21 10:17] LABS: TROPONIN I 0.164 ng/ml (<0.045)
== END 2020-04-21 13:10 | disposition left against medical advice (07) ==
LOC: ED 08:59
PROVIDERS: Emergency Medicine
DX: Z04.3 Encounter for examination and observation following other accident (principal); Z79.899 Other long term (current) drug therapy; Z79.82 Long term (current) use of aspirin; W19.XXXA Unspecified fall, initial encounter; Y93.89 Activity, other specified; Y92.89 Other specified places as the place of occurrence of the external cause; Y99.8 Other external cause status

== ENCOUNTER 2020-04-25 17:48 | Emergency (ER) | payer MEDICARE ==
[~2020-04-25] VITALS: Ht 167.6 cm; Wt 63.5 kg
== END 2020-04-25 23:40 | disposition home or self-care (01) ==
LOC: ED 17:48
DX: S50.11XA Contusion of right forearm, initial encounter (principal); I48.91 Unspecified atrial fibrillation; E78.5 Hyperlipidemia, unspecified; I13.2 Hypertensive heart and chronic kidney disease with heart failure and with stage 5 chronic kidney disease, or end stage renal disease; I50.30 Unspecified diastolic (congestive) heart failure; N18.6 End stage renal disease; Z79.899 Other long term (current) drug therapy; Z79.82 Long term (current) use of aspirin; Z99.2 Dependence on renal dialysis; X58.XXXA Exposure to other specified factors, initial encounter; Y93.89 Activity, other specified; Y92.89 Other specified places as the place of occurrence of the external cause; Y99.8 Other external cause status

== ENCOUNTER 2020-05-01 16:34 | Emergency (ER) | payer MEDICARE ==
[~2020-05-01] VITALS: Wt 65.8 kg
== END 2020-05-01 20:40 | disposition expired ==
LOC: ED 16:34
DX: I46.9 Cardiac arrest, cause unspecified (principal); Z79.899 Other long term (current) drug therapy; Z79.82 Long term (current) use of aspirin